=== PATIENT | female | born 1975 | race Caucasian/White ===

== ENCOUNTER 2023-07-11 10:10 | Emergency (ER) | payer OTHER, SELFPAY ==
[2023-07-11 10:27] VITALS: BP 142/95; PULSE 89; TEMP 36.7; O2SAT 94; BMI 42.6
--- NOTE | 2023-07-11 11:47 | ED.BACK1 ---
HPI HPI - Back Pain/Injury General Chief Complaint: Back Pain/Injury Stated Complaint: BACK PAIN Time Seen by Provider: 07/11/23 11:36 Source: patient Mode of arrival: walk-in History of Present Illness HPI Narrative: This patient is here complaining of pain in her left mid and lower thoracic area. Her medication profile indicates that she has been taking gabapentin from a primary care doctor for this issue for several months. She has not had new trauma or injury or change in activities. She does not have any radiculopathy. She has not had past surgical history to the back area. She has not been referred to a back specialist or neurosurgeon. She does not have any history of fever shakes or chills. She does not have bladder or bowel incontinence or dysfunction. She did not mention anything of urinary symptomatology but we will get a urinalysis on her. Related Data Home Medications ?Medication ?Instructions ?Recorded ?Confirmed aripiprazole 5 mg tablet 5 mg PO DAILY 07/11/23 07/11/23 gabapentin 300 mg capsule 300 mg PO BID 07/11/23 07/11/23 metformin 500 mg tablet,extended 500 mg PO BID 07/11/23 07/11/23 release 24 hr sertraline 50 mg tablet 50 mg PO DAILY 07/11/23 07/11/23 Allergies Allergy/AdvReac Type Severity Reaction Status Date / Time morphine Allergy Severe Verified 07/11/23 10:31 Penicillins Allergy Severe Verified 07/11/23 10:31 sulfamethoxazole Allergy Severe Verified 07/11/23 10:31 [From Bactrim] trimethoprim [From Bactrim] Allergy Severe Verified 07/11/23 10:31 Opioid HPI Opioid Management Most Recent Opioid Data: No Data to Display Exam Narrative Exam Narrative: She moves about with some discomfort. She is not pacing the is not present as nephrolithiasis. Otherwise her skin is warm and dry and mucous memories are moist and pink. Her vital signs are stable. Examining the back there is no gross kyphoscoliosis. There is some paravertebral muscle tenderness over the mid and lower thoracic area. She does not have pain in the lumbar area. There is no evidence of shingles. Her breath sounds are normal and her pulse oximetry is normal. Straight leg raising test is normal bilaterally. Heel and toe walking is normal. Deep tendon reflexes are symmetrical bilaterally with no deficit. Extensor houses longus function is normal bilaterally. Constitutional Vital Signs, click to edit/add: Last Vital Signs Temp 98.0 F 07/11/23 10:27 Pulse 89 07/11/23 10:27 Resp 16 07/11/23 10:27 BP 142/95 H 07/11/23 10:27 Pulse Ox 94 L 07/11/23 10:27 O2 Del Method Room Air 07/11/23 10:27 Course Vital Signs Vital signs: Vital Signs Temperature 98.0 F 07/11/23 10:27 Pulse Rate 89 07/11/23 10:27 Respiratory Rate 16 07/11/23 10:27 Blood Pressure 142/95 H 07/11/23 10:27 Pulse Oximetry 94 L 07/11/23 10:27 Oxygen Delivery Method Room Air 07/11/23 10:27 Temperature 98.0 F 07/11/23 10:27 Pulse Rate 89 07/11/23 10:27 Respiratory Rate 16 07/11/23 10:27 Blood Pressure 142/95 H 07/11/23 10:27 Pulse Oximetry 94 L 07/11/23 10:27 Oxygen Delivery Method Room Air 07/11/23 10:27 MDM - Back Pain/Injury MDM Narrative Medical decision making narrative: This patient's not had any CT imaging for many many many years. The CT of her thoracic spine did not show any gross abnormality. Her neurological findings are normal. This appears to be more musculoskeletal and not necessarily related to kidney problems. She will be placed on muscle relaxant and nighttime analgesic. She can continue the gabapentin or have her primary care doctor increase as necessary Discharge Plan Discharge Stand Alone Forms: Portal Instructions Chief Complaint: Back Pain/Injury Clinical Impression: Acute thoracic myofascial strain Patient Disposition: Home, Self-Care Time of Disposition Decision: 12:50 Prescriptions / Home Meds: No Action gabapentin 300 mg capsule 300 mg PO BID metformin 500 mg tablet extended release 24 hr 500 mg PO BID sertraline 50 mg tablet 50 mg PO DAILY aripiprazole 5 mg tablet 5 mg PO DAILY Print Language: Syrian Additional Instructions: Continue gabapentin. [place] for night pain/Robaxin for several days/warm compresses Referrals: MARCO GRANGER [Primary Care Provider] - 1 week
--- NOTE | 2023-07-11 11:47 | CT_ITS ---
The [address] [address] Patient Name: MASOUD LUDWIG MRN: [id number] date: 1975 Sex: F Assigned Patient Location: ER Current Patient Location: ER Accession/Order Number: [id number] Exam Date: 07/11/2023 11:59 Report Date: 07/11/2023 12:35 At the request of: EWELINA BRUCE Procedure: CT thoracic spine wo con PROCEDURE: CT thoracic spine wo con HISTORY: Back pain COMPARISON: XR thoracic spine 01/07/2015 TECHNIQUE: Axial, Coronal, and Sagittal CT images obtained without IV contrast. Dose reduction techniques were achieved by using automated exposure control and/or adjustment of mA and/or kV according to patient size and/or use of iterative reconstruction technique. FINDINGS: PARASPINAL AREA: Normal with no visible mass. DISCS: No significant disc space narrowing or appreciable significant disc bulging. BONES: Normal height and alignment of vertebral bodies; no fracture, spondylolisthesis, bone lesion. No significant degenerative facet arthropathy. OTHER: Negative. CT/CT thoracic spine wo con IMPRESSION: 1. No appreciable acute abnormality. 2. Minimal appreciable degenerative changes. Consider follow-up MRI of thoracic spine if symptoms persist. Electronically authenticated by: ELDER WEBER Date: 07/11/2023 12:35
== END 2023-07-11 13:24 | disposition home or self-care (01) ==
PROVIDERS: Emergency Provider Emergency Medicine Emergency Medical Services
DX: S29.012A Strain of muscle and tendon of back wall of thorax, initial encounter (principal); Z79.899 Other long term (current) drug therapy; Z79.84 Long term (current) use of oral hypoglycemic drugs
CPT/HCPCS: 72128; 99284

== ENCOUNTER 2023-11-03 12:54 | Emergency (ER) | payer OTHER, SELFPAY ==
[2023-11-03] VITALS (15 sets, daily range): BP systolic 137–171; BP diastolic 81–106; PULSE 78–93; TEMP 36.7; O2SAT 92–98; BMI 42.6
--- NOTE | 2023-11-03 13:17 | XR_ITS ---
The [address] [address] Patient Name: MASOUD LUDWIG MRN: [id number] date: 1975 Sex: F Assigned Patient Location: ED.MAIN Current Patient Location: ER Accession/Order Number: [id number] Exam Date: 11/03/2023 14:20 Report Date: 11/03/2023 15:30 At the request of: RALPH GARCES Procedure: XR chest 1V PROCEDURE: XR chest 1V, 11/03/2023 2:20 PM EDT CLINICAL INDICATIONS: Chest pain, short of breath COMPARISON: None TECHNIQUE: Upright AP portable chest 1419 hours FINDINGS: The heart is upper normal in size. Mediastinum accentuated by rotation and kyphosis. Lung volumes are diminished with mild perihilar pulmonary venous congestion or subsegmental atelectasis. Acute consolidation, pleural effusion, or pneumothorax is not demonstrated. No acute osseous abnormality is seen. Regional soft tissues are unremarkable. XR/XR chest 1V IMPRESSION: 1. Low lung volumes with perihilar atelectasis or mild pulmonary venous congestion 2. No consolidation, pleural effusion or pneumothorax Electronically authenticated by: IVIS BURTON Date: 11/03/2023 15:30
--- NOTE | 2023-11-03 13:17 | ECG_ITS ---
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
--- NOTE | 2023-11-03 13:19 | ED.CHESTPAI1 ---
HPI - Chest Pain General Chief Complaint: Chest Pain Stated Complaint: CHEST PAIN Time Seen by Provider: 11/03/23 12:55 Source: patient Mode of arrival: walk-in History of Present Illness HPI narrative: Patient presents to ED complaining of chest pain. She says she has had chest pain for the past 3 days across the center of her chest. It would come and go nothing really made it worse or better. She said today the chest pain was across her whole chest and felt worse than yesterday so she came in for evaluation. She does have a history of diabetes. No history of high blood pressure although upon arrival her blood pressure is elevated. She does have a family history of heart problems as well. No personal history of cardiac issues or stents.She denies shortness of breath with exertion but states when the pain comes and makes her feel little short of breath. No calf pain or swelling. No wheezing Related Data Home Medications ?Medication ?Instructions ?Recorded ?Confirmed aripiprazole 5 mg tablet 5 mg PO DAILY 07/11/23 07/11/23 gabapentin 300 mg capsule 300 mg PO BID 07/11/23 07/11/23 metformin 500 mg tablet,extended 500 mg PO BID 07/11/23 07/11/23 release 24 hr sertraline 50 mg tablet 50 mg PO DAILY 07/11/23 07/11/23 Previous Rx's ?Medication ?Instructions ?Recorded prednisone 20 mg tablet 20 mg PO BID 3 days #6 tabs 11/03/23 Allergies Allergy/AdvReac Type Severity Reaction Status Date / Time morphine Allergy Severe Verified 07/11/23 10:31 Penicillins Allergy Severe Verified 07/11/23 10:31 sulfamethoxazole Allergy Severe Verified 07/11/23 10:31 [From Bactrim] trimethoprim [From Bactrim] Allergy Severe Verified 07/11/23 10:31 Review of Systems ROS Status of ROS 10 or more systems reviewed and unremarkable except as noted in history and below Exam Narrative Exam Narrative: Time Seen: [] Vital Signs: [Per nurse's notes.] General: [Alert] Skin: [Warm, dry, no rash.] Head: [Normocephalic, atraumatic.] Neck: [Supple, trachea midline.] Eye: [Pupils are equal, round and reactive to light, extraocular movements are intact, normal conjunctiva.] Ears, nose, mouth and throat: oral mucosa moist. Cardiovascular: [Regular rate and rhythm, no murmur.] Respiratory: [Lungs are clear to auscultation, respirations are non-labored, breath sounds are equal.] Chest wall: [No tenderness, no deformity.] Gastrointestinal: [Soft, nontender, non distended, normal bowel sounds.] MSK: 5 out of 5 muscle strength x 4 extremities no calf pain or edema Lymphatics: [No lymphadenopathy.] Psychiatric: [Cooperative, appropriate mood & affect.] Neurological: [Alert and oriented to person, place, time, and situation, no focal neurological deficit observed.] Constitutional Vital Signs, click to edit/add: Last Vital Signs Temp 98.0 F 11/03/23 12:58 Pulse 78 11/03/23 14:20 Resp 16 11/03/23 14:20 BP 139/81 11/03/23 14:15 Pulse Ox 96 11/03/23 14:20 O2 Del Method Room Air 11/03/23 13:13 Course Vital Signs Vital signs: Vital Signs Temperature 98.0 F 11/03/23 12:58 Pulse Rate 92 H 11/03/23 12:58 Respiratory Rate 20 11/03/23 12:58 Blood Pressure 154/99 H 11/03/23 12:58 Temperature 98.0 F 11/03/23 12:58 Pulse Rate 78 11/03/23 14:20 Respiratory Rate 16 11/03/23 14:20 Blood Pressure 139/81 11/03/23 14:15 Pulse Oximetry 96 11/03/23 14:20 Oxygen Delivery Method Room Air 11/03/23 13:13 MDM - Chest Pain MDM Narrative Medical decision making narrative: Patient's cardiac workup is negative for acute. Chest x-ray shows mild inflammation but no acute pneumonia. Patient has been diagnosed with pleurisy in the past and said this does feel similar. No acute cardiac abnormality, normal EKG. No pneumonia on the x-ray and otherwise labs are stable. Vital signs stable. Will send home with some steroids. Follow-up with family doctor otherwise return to ED if worsening symptoms. She request today and tomorrow off work and note was given. Differential Diagnosis Differential diagnosis: Likely stable angina, unstable angina pectoris, atypical chest pain and chest pain Medical Records Data Attestation: I reviewed the patient's medical records. Lab Data Attestation: I reviewed the patient's lab results. Labs: Lab Results 11/03/23 Range/Units 13:10 WBC 11.8 H (4.0-11.0) 10^3/uL RBC 4.66 (4.20-5.40) 10^6/uL Hgb 14.2 (12.0-16.0) g/dL Hct 43.8 (36.0-48.0) % MCV 94.0 (81.0-99.0) fL MCH 30.5 (26.7-34.0) pg MCHC 32.4 (29.9-35.2) g/dL RDW 14.1 (11.0-15.0) % Plt Count 331 (150-450) 10^3/uL MPV 9.0 L (9.5-13.5) fL Neut % (Auto) 62.9 (43.0-75.0) % Lymph % (Auto) 27.6 (20.5-60.0) % [place] % (Auto) 6.4 (1.7-12.0) % Eos % (Auto) 2.0 (0.9-7.0) % Baso % (Auto) 0.8 (0.2-2.0) % Neut # (Auto) 7.4 H (1.4-6.5) 10^3/uL Lymph # (Auto) 3.3 (1.2-3.8) 10^3/uL [place] # (Auto) 0.8 (0.3-0.8) 10^3/uL Eos # (Auto) 0.2 (0.0-0.7) 10^3/uL Baso # (Auto) 0.1 (0.0-0.1) 10^3/uL Abs Immat Gran (auto) 0.04 H (0.00-0.03) 10^3/uL Imm/Tot Granulo (auto) 0.3 (0.0-0.5) % Sodium 134 L (136-145) mmol/L Potassium 4.0 (3.5-5.1) mmol/L Chloride 100 (98-107) mmol/L Carbon Dioxide 28.8 (21.0-32.0) mmol/L Anion Gap 9.2 BUN 11.0 (7.0-18.0) mg/dL Creatinine 0.72 (0.55-1.02) mg/dL Est GFR ( Amer) >60 (>=60) Est GFR (Non-Af Amer) >60 (>=60) BUN/Creatinine Ratio 15.3 Glucose 128 H (74-106) mg/dL Calcium 9.1 (8.5-10.1) mg/dL Total Bilirubin 0.2 (0.2-1.0) mg/dL AST 8 L (15-37) U/L ALT 15 (14-59) U/L Alkaline Phosphatase 139 H (46-116) U/L Troponin I High Sens <4.0 L (4.0-51.3) pg/mL Total Protein 7.3 (6.4-8.2) g/dL Albumin 3.4 (3.4-5.0) g/dL Globulin 3.9 g/dL Albumin/Globulin Ratio 0.9 Imaging Data Chest x-ray: Radiologist's impression: ITS Impressions Chest X-Ray 11/03/23 13:17 IMPRESSION: 1. Low lung volumes with perihilar atelectasis or mild pulmonary venous congestion 2. No consolidation, pleural effusion or pneumothorax Electronically authenticated by: IVIS BURTON Date: 11/03/2023 15:30 ECG Data Attestation: I personally reviewed and interpreted this ECG as follows: Interpretation: EKG INTERPRETATION Time: []1302 Rate: []97 Rhythm: _ []Sinus rhythm ST segments: _ []No acute ST elevation or depression T waves: _ [] Ectopy: _ [] P wave/AL interval: _ [] QRS interval: _ [] QT interval: _ [] Comparison: _ [] Comparison EKG date: [] Performed by: [self] Heart Score History: Slightly/Non-Suspicious ECG: Normal Age: >45-<65 years Risk Factors: 1 or 2 Risk Factors Troponin: <Normal Limit Total Heart Score Recommendations & Risks:: 2 Discharge Plan Discharge Stand Alone Forms: Portal Instructions Chief Complaint: Chest Pain Clinical Impression: Chest pain, Pleurisy Patient Disposition: Home, Self-Care Time of Disposition Decision: 15:36 Condition: Good Mode of Transportation: Private Vehicle Prescriptions / Home Meds: New prednisone 20 mg tablet 20 mg PO BID 3 Days Qty: 6 0RF No Action gabapentin 300 mg capsule 300 mg PO BID metformin 500 mg tablet extended release 24 hr 500 mg PO BID sertraline 50 mg tablet 50 mg PO DAILY aripiprazole 5 mg tablet 5 mg PO DAILY Print Language: Tongan Instructions: [place] (ED) Referrals: MARCO GRANGER [Primary Care Provider] - 1 week Discharge Date/Time: 11/03/23 15:52
[2023-11-03] MEDS: 0.9 % SODIUM CHLORIDE 500 ML IV (13:27)
[2023-11-03] MEDS: KETOROLAC TROMETHAMINE 30 MG/ML VIAL 15 MG IVP (13:27)
[2023-11-03 13:43] LABS: Basophils Absolute Auto 0.1 10^3/uL (0.0-0.1); Basophils Percent Auto 0.8 % (0.2-2.0); Eosinophils Absolute Auto 0.2 10^3/uL (0.0-0.7); Hematocrit 43.8 % (36.0-48.0); Hemoglobin 14.2 g/dL (12.0-16.0); Immature Granulocytes Abs Auto 0.04 10^3/uL (0.00-0.03); Immature Granulocytes Pct Auto 0.3 % (0.0-0.5); Lymphocytes Absolute Auto 3.3 10^3/uL (1.2-3.8); Lymphocytes Percent Auto 27.6 % (20.5-60.0); Mean Corpuscular HGB Conc 32.4 g/dL (29.9-35.2); Mean Corpuscular Hemoglobin 30.5 pg (26.7-34.0); Monocytes Absolute Auto 0.8 10^3/uL (0.3-0.8); Monocytes Percent Auto 6.4 % (1.7-12.0); Neutrophils Absolute Auto 7.4 10^3/uL (1.4-6.5); Neutrophils Percent Auto 62.9 % (43.0-75.0); Platelet Count 331 10^3/uL (150-450); Red Blood Count 4.66 10^6/uL (4.20-5.40); Red Cell Distribution Width 14.1 % (11.0-15.0); White Blood Count 11.8 10^3/uL (4.0-11.0)
[2023-11-03 14:01] LABS: Alanine Aminotransferase 15 U/L (14-59); Albumin Globulin Ratio 0.9; Albumin Level 3.4 g/dL (3.4-5.0); Alkaline Phosphatase 139 U/L (46-116); Anion Gap 9.2; Aspartate Amino Transferase 8 U/L (15-37); BUN Creatinine Ratio 15.3; Bilirubin Total 0.2 mg/dL (0.2-1.0); Calcium 9.1 mg/dL (8.5-10.1); Carbon Dioxide 28.8 mmol/L (21.0-32.0); Chloride 100 mmol/L (98-107); Estimated GFR (African America >60 (>=60); Estimated GFR (Non-African Ame >60 (>=60); Globulin 3.9 g/dL; Glucose 128 mg/dL (74-106); Sodium 134 mmol/L (136-145); Total Protein 7.3 g/dL (6.4-8.2)
[2023-11-03 14:03] LABS: Troponin I High Sensitivity <4.0 pg/mL (4.0-51.3)
== END 2023-11-03 15:52 | disposition home or self-care (01) ==
PROVIDERS: Emergency Provider Emergency Medicine
DX: R07.9 Chest pain, unspecified (principal); R09.1 Pleurisy
CPT/HCPCS: 36415; 71045; 80053; 84484; 85025; 93005; 96374; 99285; J1885

== ENCOUNTER 2024-02-02 08:36 | Emergency (ER) | payer OTHER, SELFPAY ==
[2024-02-02] VITALS (30 sets, daily range): BP systolic 146–183; BP diastolic 82–103; PULSE 74–110; TEMP 36.6; O2SAT 94–99; BMI 42.5
--- OUTSIDE RECORDS SUMMARY | 2024-02-02 08:42 | XMS_ITS | CCD ---
Author Organization [facility] Care Team Providers Care Pre Owned Sales Consultant Name Role Phone MARCO GRANGER Admitting Unavailable MARCO GRANGER Attending Unavailable MARCO GRANGER Primary Care Unavailable ELKIN, MARCO Consulting Unavailable Allergies Allergy Classification Reported Allergen(s) Allergy Type Date of Onset Reaction(s) Facility (1 source) Morphine Drug Allergy 04-01-2012 [facility] (1 source) Penicillins Drug allergy (disorder) 04-01-2012 [facility] (1 source) Sulfonamides (Antibiotic) Drug allergy (disorder) 04-01-2012 [facility] Problems Problem Classification Problem Date Documented Da te Episodic/Chronic Immunizations and screening for infectious disease (4 sources) Encounter for screening for other viral diseases; Translations: [ENC SCREENING FOR OTH VIRAL DZ] Onset: 10-29-2019 Episodic Other lower respiratory disease (1 source) Cough; Translations: [COUGH] Onset: 11-01-2019 Episodic Results Test Name Value Interpretation Reference Range Facil ity COVID-19 PCRon 10-31-2019 SARS-CoV-2, PHOEBE Not Detected Normal Not Detected [facility] Comment on above: Result Comment: This test was developed and its performance characteristics determined by [employer]. This test has not been FDA cleared or approved. This test has been authorized by FDA under an Emergency Use Authorization (EUA). This test is only authorized for the duration of time the declaration that circumstances exist justifying the authorization of the emergency use of in vitro diagnostic tests for detection of SARS-CoV-2 virus and/or diagnosis of COVID-19 infection under section 564(b)(1) of the Act, 21 U.S.C. 360bbb-3(b)(1), unless the authorization is terminated or revoked sooner. When diagnostic testing is negative, the possibility of a false negative result should be considered in the context of a patient's recent exposures and the presence of clinical signs and symptoms consistent with COVID-19. An individual without symptoms of COVID-19 and who is not shedding SARS-CoV-2 virus would expect to have a negative (not detected) result in this assay. Performed By: #### C VDPCR #### [facility] [address] [place], [place] [address] Dottie Shields Encounters Encounter Date Encounter Type Care Provider Facility Start: 10-29-2019 End: 10-30-2019 Patient encounter procedure MARCO GRANGER Facility:[facility] Payers Date Payer Category Payer Unknown [id number] 1961 Unknown [id number] Summary Purpose Family History No Family History Records Found Advance Directives No Advanced Directives Records Found Additional Source Comments INFORMATION SOURCE (unrecogn ized section and content) DATE CREATED AUTHOR 01/01/2020 [facility] FOR RECORDS PERTAINING TO PATIENTS WHO ARE OR HAVE BEEN ENROLLED IN A CHEMICAL DEPENDENCY/SUBSTANCEABUSE PROGRAM, SOME INFORMATION MAY BE OMITTED. This clinical summary was aggregated from multiple sources. Caution should be exercised in using it in the provision of clinical care. This summary normalizes information from multiple sources, and as a consequence, information in this document may materially change the coding, format and clinical context of patient data. In addition, data may be omitted in some cases. CLINICAL DECISIONS SHOULD BE BASED ON THE PRIMARY CLINICAL RECORDS. [employer] provides no warranty or guarantee of the accuracy or completeness of information in this document.
--- NOTE | 2024-02-02 08:57 | ECG_ITS ---
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
--- NOTE | 2024-02-02 08:58 | CT_ITS ---
[address] [address] Patient Name: MASOUD LUDWIG MRN: [id number] date: 1975 Sex: F Assigned Patient Location: ER Current Patient Location: Accession/Order Number: [id number] Exam Date: 02/02/2024 09:15 Report Date: 02/02/2024 09:44 At the request of: MARTIN COOK Procedure: CT head/brain wo con EXAMINATION: CT head/brain wo con HISTORY: dizziness COMPARISON: None. TECHNIQUE: CT head without contrast. Dose reduction techniques were achieved by using: automated exposure control and/or adjustment of mA and /or kV according to patient size and/or use of iterative reconstruction technique. FINDINGS: There is a T1 low density lesion at the left thalamus measuring 8 x 12 mm. Negative for acute hemorrhage. No hydrocephalus, midline shift, mass effect, pathologic extra-axial fluid collections. CT/CT head/brain wo con IMPRESSION: 1. 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 There is no evidence for hemorrhage or mass effect. 2. Negative for acute hemorrhage or acute process in the remaining brain. Electronically authenticated by: NISHA MONSON Date: 02/02/2024 09:44
--- NOTE | 2024-02-02 09:27 | ED_ITS ---
HPI - Dizziness General Chief Complaint: Dizziness Stated Complaint: DIZZINESS Time Seen by Provider: 02/02/24 08:57 Source: patient Mode of arrival: Wheelchair History of Present Illness HPI Narrative: The patient is coming to us with 3 days history of increased dizziness, mentioned that almost a month ago she has been having some episodes where the room spinning but 3 days ago she noted that this room spinning was associated also with the right-sided weakness, he mentioned that this started night and today she is presenting to us at Saturday The patient has no headache at the moment she denies any chest pain nausea vomiting or any other concerns. She mentioned that she has not been taking her insulin because she does not have any medication for the last month because of insurance issue The patient mentioned that she has been managing at home while leaning on objects to move around but she is having right-sided weakness that she also noted at evening No blurry vision or double vision no difficulty speaking at any time Related Data Allergies Allergy/AdvReac Type Severity Reaction Status Date / Time morphine Allergy Severe Verified 07/11/23 10:31 Penicillins Allergy Severe Verified 07/11/23 10:31 sulfamethoxazole (From Allergy Severe Verified 07/11/23 10:31 Bactrim) trimethoprim (From Bactrim) Allergy Severe Verified 07/11/23 10:31 Review of Systems ROS Status of ROS 10 or more systems reviewed and unremark able except as noted in history and below Exam Narrative Exam Narrative: Nurses notes and vital signs reviewed and patient is not hypoxic. Upon arrival the patient NIH score is 4 ; She have some drift in the right upper extremity when raised and the right lower extremity the patient have mild movement against gravity The patient also had mild ataxia in the right hand mostly when pointing to the index finger she would point just beside her nose that at her nose General: Well-appearing and in no apparent distress. Skin: Warm, dry, no pallor noted. No rash. Head: Normocephalic, atraumatic. Neck: Supple, non-tender. Eye: Pupils are equal, round and EOMI. No scleral icterus. Ears, Nose, Mouth, and Throat: TM are clear, no nasal mucosal hypertrophy. Oral mucosa is moist, no posterior oropharynx erythema, uvula is mid-line Cardiovascular: Regular Rate and Rhythm without murmur, gallop or rub. Respiratory: No accessory muscle use or respiratory distress. Lungs are clear to auscultation, no wheezing, rales or rhonchi Chest Wall: no tenderness Back: No midline thoracic or lumbar vertebral tenderness. No CVA tenderness Musculoskeletal: normal ROM, no calf or popliteal tenderness, no lower extremity edema/swelling GI: Abdomen is soft, non-distended. Normal bowel sounds. No masses appreciated. No tenderness to palpation. No rebound, guarding, or rigidity noted. . Psychiatric: Cooperative and interactive. Normal mood and affect. Constitutional Vital Signs, click to edit/add: Last Vital Signs Temp 98 F 02/02/24 08:40 Pulse 79 02/02/24 13:50 Resp 15 02/02/24 13:50 BP 155/91 H 02/02/24 13:30 Pulse Ox 94 L 02/02/24 11:20 Course Vital Signs Vital signs: Vital Signs Temperature 98 F 02/02/24 08:40 Pulse Rate 93 H 02/02/24 08:40 Respiratory Rate 20 02/02/24 08:40 Blood Pressure 180/97 H 02/02/24 08:40 Pulse Oximetry 99 02/02/24 08:40 Temperature 98 F 02/02/24 08:40 Pulse Rate 79 02/02/24 13:50 Respiratory Rate 15 02/02/24 13:50 Blood Pressure 155/91 H 02/02/24 13:30 Pulse Oximetry 94 L 02/02/24 11:20 MDM - Dizziness MDM Narrative Medical decision making narrative: Upon arrival the patient EKG showing that she had sinus rhythm with a heart rate of [address] elevation or depression CBC showed no acute pathology the chemistry showing hyperglycemia with a blood sugar of 286 The patient had a CAT scan initially without contrast showing subacute thalamic left-sided hypodensity possibly subacute stroke The patient case was discussed with and the patient was started on aspirin low-dose The patient then had her CT angio reviewed by and 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 neurology Lab Data Labs: Lab Results 11/03/24 Range/Units 09:06 WBC 11.3 H (4.0-11.0) 10^3/uL RBC 4.95 (4.20-5.40) 10^6/uL Hgb 15.0 (12.0-16.0) g/dL Hct 45.4 (36.0-48.0) % MCV 91.7 (81.0-99.0) fL MCH 30.3 (26.7-34.0) pg MCHC 33.0 (29.9-35.2) g/dL RDW 13.6 (11.0-15.0) % Plt Count 303 (150-450) 10^3/uL MPV 9.3 L (9.5-13.5) fL Neut % (Auto) 71.8 (43.0-75.0) % Lymph % (Auto) 20.2 L (20.5-60.0) % [place] % (Auto) 6.1 (1.7-12.0) % Eos % (Auto) 0.9 (0.9-7.0) % Baso % (Auto) 0.6 (0.2-2.0) % Neut # (Auto) 8.1 H (1.4-6.5) 10^3/uL Lymph # (Auto) 2.3 (1.2-3.8) 10^3/uL [place] # (Auto) 0.7 (0.3-0.8) 10^3/uL Eos # (Auto) 0.1 (0.0-0.7) 10^3/uL Baso # (Auto) 0.1 (0.0-0.1) 10^3/uL Abs Immat Gran (auto) 0.04 H (0.00-0.03) 10^3/uL Imm/Tot Granulo (auto) 0.4 (0.0-0.5) % Sodium 137 (136-145) mmol/L Potassium 4.2 (3.5-5.1) mmol/L Chloride 100 (98-107) mmol/L Carbon Dioxide 22.3 (21.0-32.0) mmol/L Anion Gap 18.9 BUN 10.0 (7.0-18.0) mg/dL Creatinine 0.83 (0.55-1.02) mg/dL Est GFR ( Amer) >60 (>=60 mL/min/1.73m^2) Est GFR (Non-Af Amer) >60 (>=60 mL/min/1.73m^2) BUN/Creatinine Ratio 12.0 Glucose 286 H (74-106) mg/dL Calcium 9.3 (8.5-10.1) mg/dL Magnesium 1.8 (1.8-2.4) mg/dL Total Bilirubin 0.4 (0.2-1.0) mg/dL AST 9 L (15-37) U/L ALT 18 (14-59) U/L Alkaline Phosphatase 163 H (46-116) U/L Troponin I High Sens <4.0 L (4.0-51.3) pg/mL Total Protein 7.6 (6.4-8.2) g/dL Albumin 3.4 (3.4-5.0) g/dL Globulin 4.2 g/dL Albumin/Globulin Ratio 0.8 Discharge Plan Discharge Chief Complaint: Dizziness Clinical Impression: Dissection of vertebral artery Stroke Qualifiers: CVA mechanism: thrombosis Precerebral and cerebral artery: vertebral artery Laterality of affected vessel: unspecified Qualified Code(s): I63.019 - Cerebral infarction due to thrombosis of unspecified vertebral artery Patient Disposition: [facility] Time of Disposition Decision: 12:21 Discharge Date/Time: 02/02/24 13:54
[2024-02-02 09:30] LABS: Basophils Absolute Auto 0.1 10^3/uL (0.0-0.1); Basophils Percent Auto 0.6 % (0.2-2.0); Eosinophils Absolute Auto 0.1 10^3/uL (0.0-0.7); Eosinophils Percent Auto 0.9 % (0.9-7.0); Hematocrit 45.4 % (36.0-48.0); Immature Granulocytes Abs Auto 0.04 10^3/uL (0.00-0.03); Immature Granulocytes Pct Auto 0.4 % (0.0-0.5); Lymphocytes Absolute Auto 2.3 10^3/uL (1.2-3.8); Lymphocytes Percent Auto 20.2 % (20.5-60.0); Mean Corpuscular Hemoglobin 30.3 pg (26.7-34.0); Mean Corpuscular Volume 91.7 fL (81.0-99.0); Mean Platelet Volume 9.3 fL (9.5-13.5); Monocytes Absolute Auto 0.7 10^3/uL (0.3-0.8); Monocytes Percent Auto 6.1 % (1.7-12.0); Neutrophils Absolute Auto 8.1 10^3/uL (1.4-6.5); Neutrophils Percent Auto 71.8 % (43.0-75.0); Platelet Count 303 10^3/uL (150-450); Red Blood Count 4.95 10^6/uL (4.20-5.40); Red Cell Distribution Width 13.6 % (11.0-15.0); White Blood Count 11.3 10^3/uL (4.0-11.0)
[2024-02-02] MEDS: ONDANSETRON PF 4 MG/2 ML VIAL IV (09:34)
[2024-02-02 09:46] LABS: Alanine Aminotransferase 18 U/L (14-59); Albumin Globulin Ratio 0.8; Albumin Level 3.4 g/dL (3.4-5.0); Alkaline Phosphatase 163 U/L (46-116); Anion Gap 18.9; Aspartate Amino Transferase 9 U/L (15-37); Bilirubin Total 0.4 mg/dL (0.2-1.0); Calcium 9.3 mg/dL (8.5-10.1); Carbon Dioxide 22.3 mmol/L (21.0-32.0); Chloride 100 mmol/L (98-107); Estimated GFR (African America >60 (>=60 mL/min/1.73m^2); Estimated GFR (Non-African Ame >60 (>=60 mL/min/1.73m^2); Globulin 4.2 g/dL; Glucose 286 mg/dL (74-106); Potassium 4.2 mmol/L (3.5-5.1); Sodium 137 mmol/L (136-145); Total Protein 7.6 g/dL (6.4-8.2)
[2024-02-02 09:48] LABS: Magnesium 1.8 mg/dL (1.8-2.4); Troponin I High Sensitivity <4.0 pg/mL (4.0-51.3)
--- NOTE | 2024-02-02 09:59 | CT_ITS ---
[address] [address] Patient Name: MASOUD LUDWIG MRN: [id number] date: 1975 Sex: F Assigned Patient Location: ER Current Patient Location: .[facility] Accession/Order Number: [id number] Exam Date: 02/02/2024 10:45 Report Date: 02/02/2024 12:28 At the request of: MARTIN COOK Procedure: CT angio head EXAMINATION: CT angio neck, CT angio head HISTORY: subacute stroke [chronic infarct on head CT. COMPARISON: Head CT same date. TECHNIQUE: CT angiogram of the head and neck with intravenous contrast, maximum intensity projection images, 3-dimensional volume rendered images on separate workstation. Dose reduction techniques were achieved by using: automated exposure control and/or adjustment of mA and /or kV according to patient size and/or use of iterative reconstruction technique. FINDINGS: CTA neck: No flow-limiting stenosis at the origins of the great vessels. There is an aberrant right subclavian artery. No stenosis of the carotid arteries by NASCET criteria. The right vertebral artery is patent without flow limiting stenosis in the cervical segment. The left vertebral artery is occluded at the origin, with reconstitution from collateral flow at the mid V2 segment. The vessel then again occludes at the distal V2 segment. The distal right vertebral artery appears to nearly terminate into the posterior inferior cerebellar artery. There is flow in the distal left vertebral artery. CTA HEAD: Flow in the anterior circulation without occlusion. Flow in the basilar artery and the bilateral posterior cerebral arteries. No intracranial aneurysms or vascular malformations. No airspace infiltrates in the included lung apices. CT/CT angio head IMPRESSION: 1. The left vertebral artery is occluded at the origin, with intermittent reconstitution at the V2 segment, which then completely occludes below the skull base. This could be from dissection. There is severe decreased caliber of the nondominant distal right vertebral artery after the takeoff of the posterior inferior cerebellar artery, which could be from stenosis or anatomic variation. There is flow in the basilar artery, which could be from retrograde flow or from small amount of flow from the right vertebral artery. 2. No flow limiting stenosis or occlusion of the remaining major intracranial arteries. 3. No stenosis of the carotid arteries by NASCET criteria. Critical results were NOTIFIED by TELEPHONE BY Dr. Orlando Hwang to Dr. Cook At 02/02/2024 12:10 PM EST. Electronically authenticated by: ORLANDO HWANG Date: 02/02/2024 12:28
--- NOTE | 2024-02-02 09:59 | CT_ITS ---
[address] [address] Patient Name: MASOUD LUDWIG MRN: [id number] date: 1975 Sex: F Assigned Patient Location: ER Current Patient Location: .[facility] Accession/Order Number: [id number] Exam Date: 02/02/2024 10:45 Report Date: 02/02/2024 12:28 At the request of: MARTIN COOK Procedure: CT angio neck EXAMINATION: CT angio neck, CT angio head HISTORY: subacute stroke [chronic infarct on head CT. COMPARISON: Head CT same date. TECHNIQUE: CT angiogram of the head and neck with intravenous contrast, maximum intensity projection images, 3-dimensional volume rendered images on separate workstation. Dose reduction techniques were achieved by using: automated exposure control and/or adjustment of mA and /or kV according to patient size and/or use of iterative reconstruction technique. FINDINGS: CTA neck: No flow-limiting stenosis at the origins of the great vessels. There is an aberrant right subclavian artery. No stenosis of the carotid arteries by NASCET criteria. The right vertebral artery is patent without flow limiting stenosis in the cervical segment. The left vertebral artery is occluded at the origin, with reconstitution from collateral flow at the mid V2 segment. The vessel then again occludes at the distal V2 segment. The distal right vertebral artery appears to nearly terminate into the posterior inferior cerebellar artery. There is flow in the distal left vertebral artery. CTA HEAD: Flow in the anterior circulation without occlusion. Flow in the basilar artery and the bilateral posterior cerebral arteries. No intracranial aneurysms or vascular malformations. No airspace infiltrates in the included lung apices. CT/CT angio neck IMPRESSION: 1. The left vertebral artery is occluded at the origin, with intermittent reconstitution at the V2 segment, which then completely occludes below the skull base. This could be from dissection. There is severe decreased caliber of the nondominant distal right vertebral artery after the takeoff of the posterior inferior cerebellar artery, which could be from stenosis or anatomic variation. There is flow in the basilar artery, which could be from retrograde flow or from small amount of flow from the right vertebral artery. 2. No flow limiting stenosis or occlusion of the remaining major intracranial arteries. 3. No stenosis of the carotid arteries by NASCET criteria. Critical results were NOTIFIED by TELEPHONE BY Dr. Orlando Hwang to Dr. Cook At 02/02/2024 12:10 PM EST. Electronically authenticated by: ORLANDO HWANG Date: 02/02/2024 12:28
--- NOTE | 2024-02-02 11:00 | PC.NURSE ---
pt reports having dizziness for past month. pt states dizziness became worse 3 days ago with some weakness to right side. pt denies any injury or fall. pt states she has been to see her pcp and states her pcp did not do anything at that time for her dizziness.
[2024-02-02] MEDS: ASPIRIN 81 MG TAB.CHEW PO (11:12)
[2024-02-02] MEDS: LABETALOL HCL 20 MG/4 ML SYRINGE 10 MG IVP (11:51)
[2024-02-02] MEDS: HEPARIN SODIUM,PORCINE/D5W 25,000 UNIT/500 ML IV.SOLN 18 UNIT IV (11:52)
== END 2024-02-02 13:54 | disposition short-term general hospital (02) ==
PROVIDERS: Emergency Provider Emergency Medicine
DX: I63.012 Cerebral infarction due to thrombosis of left vertebral artery (principal); R29.704 NIHSS score 4; I77.74 Dissection of vertebral artery; R73.9 Hyperglycemia, unspecified; T38.3X6A Underdosing of insulin and oral hypoglycemic [antidiabetic] drugs, initial encounter; Z91.120 Patient's intentional underdosing of medication regimen due to financial hardship
CPT/HCPCS: 36415; 70450; 70496; 70498; 80053; 83735; 84484; 85025; 93005; 96374; 96375; 99285; J1644; J1920; J2405; Q9967

== ENCOUNTER 2024-02-14 16:53 | Outpatient (REF) | payer OTHER, SELFPAY ==
--- OUTSIDE RECORDS SUMMARY | 2024-02-14 17:01 | XMS_ITS | CCD ---
Author Organization [facility] Care Team Providers Care Mortgage Loan Reviewer Name Role Phone MARCO GRANGER Admitting Unavailable ANGLIM, MARCO Attending Unavailable ANGLIM, MARCO Primary Care Unavailable ANGLIM, MARCO Consulting Unavailable SHIV GARCIAS Admitting Unavailable GARCIASSHIV GONSALVES Attending Unavailable DIABMARTIN Referring Unavailable SERVICES, [facility] Care Unava ilable MOON HAWKINS Consulting Unavailable ARMANIHERVE Consulting Unavailable DIAB MARTIN AHMAD Referring Unavailable SERVICES, [facility] Unava ilable SERVICES, [facility] Care Unava ilable SERVICES, [facility] Unava ilable SERVICES, [facility] Care Unava ilable Services, [facility] Primary Care Provider Allergies Allergy Classification Reported Allergen(s) Allergy Type Date of Onset Reaction(s) Facility (3 sources) Morphine; Translations: [MORPHINE] Drug Allergy 04-01-19 13 [facility] Repository (3 sources) Penicillins; Translations: [PENICILLINS] Drug allergy (disorder) 04-01-19 13 [facility] Repository (1 source) Sulfonamides (Antibiotic) Drug allergy (disorder) 04-01-19 13 [facility] Repository (4 sources) raspberry extract; Translations: [RASPBERRY] Drug Allergy 02-04-20 24 Hives [facility] Repository (4 sources) Sulfamethoxazole / Trimethoprim; Translations: [SULFAMETHOXAZOLE-TR IMETHOPRIM] Drug Allergy 09-30-19 19 Anaphylaxis [facility] (2 sources) Morphine Drug Allergy 09-30-19 19 [facility] (2 sources) Penicillins Propensity to adverse reactions to drug 09-30-19 19 [facility] Medications Current Medications Medication Drug Class(es) Dates Sig (Normalized) Sig (Original) atorvastatin 40 mg oral tablet (2 sources) HMG-CoA Reductase Inhibitor Start: 02-08-2024 End: 08-06-2024 take 1 tablet by mouth once daily atorvastatin (LIPITOR) 40 mg tablet Take 1 tablet (40 mg total) by mouth nightly for 180 days. 90 tablet 1 02/08/2024 08/06/2024 Active 3 ml insulin glargine 100 unt/ml pen injector (2 sources) Insulin Analog Start: 02-08-2024 inject 25 [IU] by subcutaneous injection in the morning insulin glargine (LANTUS, SEMGLEE) 100 unit/mL (3 mL) insulin pen Inject 25 Units under the skin in the morning and 25 Units before bedtime. 15 mL 12 02/08/2024 Active 3 ml insulin lispro 100 unt/ml pen injector (6 sources) Insulin Analog Start: 02-08-2024 insulin lispro (HumaLOG) 100 unit/mL insulin pen Inject 2-10 Units under the skin in the morning and 2-10 Units at noon and 2-10 Units in the evening. Inject with meals. Daytime hyperglycemia dosing with meals. 151-200 mg/dL= 2 units, 201-250 mg/dL= 4 units, 251-300 mg/dL=6, units, 301-350 mg/dL=8 units, 351-400 mg/dL=10 units.. 15 mL 12 02/08/2024 Active Start: 02-08-2024 inject 2-8 [IU] by s ubcutaneous injection once daily at bedtime insulin lispro (HumaLOG) 100 unit/mL insulin pen Inject 2-8 Units under the skin nightly. Bedtime hyperglycemia dosing. 201-250 mg/dL=2 units, 251-300 mg/dL=4 units, 301-350 mg/dL=6 units. 351-400 mg/dL=8 units. 15 mL 12 02/08/2024 Active 24 hr nicotine 0.583 mg/hr transdermal system (2 sources) Cholinergic Nicotinic Agonist Start: 02-08-2024 End: 02-15-2024 apply 1 dose transdermal route every hour in the morning nicotine (NICODERM CQ) 14 mg/[address] 1 patch on the skin in the morning for 7 days. 7 patch 02/08/2024 02/15/2024 Active warfarin sodium 2.5 mg oral tablet (2 sources) Vitamin K Antagonist Start: 02-08-2024 warfarin (COUMADIN) 2.5 mg tablet Take 5 mg daily for an INR goal of 2-3. This medication will be managed by the [facility] anticoagulation clinic/or [facility] to maintain INR goal of 2-3. 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 02-10-2024 Chronic Immunizations and screening for infectious disease (4 sources) Encounter for screening for other viral diseases; Translations: [ENC SCREENING FOR OTH VIRAL DZ] Onset: 10-29-2019 Episodic Other lower respiratory disease (1 source) Cough; Translations: [COUGH] Onset: 11-01-2019 Episodic Residual codes; unclassified (1 source) Pain, unspecified; Translations: [Pain, unspecified] Onset: 02-03-2024 Episodic Unclassified (1 source) Left Vetebral Dissection Onset: 02-02-2024 Past or Other Problems Problem Classification Problem Date Documented Da te Episodic/Chronic Mood disorders (2 sources) Mood disorders Onset: 02-02-2024 02-02-2024 Results Test Name Value Interpretation Reference Range Facility CBC AND AUTO DIFFon 02-08-20 24 ABSOLUTE BASOPHIL 0.1 X10E9/L Normal 0.0-0.2 [facility] Comment on above: Performed By: #### P INR, 3274-8, CBCA, CMP ####[facility] ([id number])[address], [address] [place] [address] ABSOLUTE NEUTROPHIL 9.2 X10E9/L High 1.5-6.6 [facility] Comment on above: Performed By: #### P INR, 3274-8, CBCA, CMP ####[facility] ([id number])[address] [facility], [place] [address] Basophils/100 WBC (Bld) 0.7 % Normal [facility] Comment on above: Performed By: #### P INR, 3274-8, CBCA, CMP ####[facility] ([id number])[address] [address], [place] [address] Eosinophils (Bld) [#/Vol] 0.2 10*3/uL Normal 0.0-0.4 [facility] Comment on above: Performed By: #### P INR, 3274-8, CBCA, CMP ####[facility] ([id number])[address] [address], [place] [address] Eosinophils/100 WBC (Bld) 1.2 % Normal [facility] Comment on above: Performed By: #### P INR, 3274-8, CBCA, CMP ####[facility] ([id number])[address] [address] Erythrocyte distribution width (RBC) [Ratio] 13.9 % Normal 11.5-15.0 [facility] Comment on above: Performed By: #### P INR, 3274-8, CBCA, CMP ####[facility] ([id number])[address] [address], [place] [address] Hematocrit (Bld) [Volume fraction] 40.3 % Normal 35-47 [facility] Comment on above: Performed By: #### P INR, 3274-8, CBCA, CMP ####[facility] ([id number])[address] [address] Hemoglobin (Bld) [Mass/Vol] 13.7 g/dL Normal 11.7-15.5 [facility] Comment on above: Performed By: #### P INR, 3274-8, CBCA, CMP ####[facility] ([id number])[address] [address] Lymphocytes (Bld) [#/Vol] 3.5 10*3/uL Normal 1.0-3.5 [facility] Comment on above: Performed By: #### P INR, 3274-8, CBCA, CMP ####[facility] ([id number])[address], [address], [place] [address] Lymphocytes/100 WBC (Bld) 24.9 % Normal [facility] Comment on above: Performed By: #### P INR, 3274-8, CBCA, CMP ####[facility] ([id number])[address], [address] [address] MCH (RBC) [Entitic mass] 31.3 pg Normal 27-34 [facility] Comment on above: Performed By: #### P INR, 4-8, CBCA, CMP ####[facility] ([id number])[address], [address] [address] MCHC (RBC) [Mass/Vol] 34.1 g/dL Normal 32-36 [facility] Comment on above: Performed By: #### P INR, 3274-8, CBCA, CMP ####[facility] ([id number])[address], [address] [place] [address], [place] [address] MCV (RBC) [Entitic vol] 92 fL Normal 80-100 [facility] Comment on above: Performed By: #### P INR, 3274-8, CBCA, CMP ####[facility] ([id number])[address] [address] [place] [address], [place] [address] Monocytes (Bld) [#/Vol] 1.0 10*3/uL High 0-0.9 [facility] Comment on above: Performed By: #### P INR, 3274-8, CBCA, CMP ####[facility] ([id number])[address] [address] [place] [address], [place] [address] Monocytes/100 WBC (Bld) 7.4 % Normal [facility] Comment on above: Performed By: #### P INR, 3274-8, CBCA, CMP ####[facility] ([id number])[address] [address] Neutrophils/100 WBC (Bld) 65.8 % Normal [facility] Comment on above: Performed By: #### P INR, 3274-8, CBCA, CMP ####[facility] ([id number])[address] [address] Platelet mean volume (Bld) [Entitic vol] 7.6 fL Normal 7-12 [facility] Comment on above: Performed By: #### P INR, 3274-8, CBCA, CMP ####[facility] ([id number])[address] [address] Platelets (Bld) [#/Vol] 237 10*3/uL Normal 150-450 [facility] Comment on above: Performed By: #### P INR, 3274-8, CBCA, CMP ####[facility] ([id number])[address] [address] RBC COUNT 4.38 X10E12/L Normal 3.80-5.20 [facility] Comment on above: Performed By: #### P INR, 3274-8, CBCA, CMP ####[facility] ([id number])[address] [address] WBC (Bld) [#/Vol] 14.0 10*3/uL High 4.0-11.0 [facility] Comment on above: Performed By: #### P INR, 3274-8, CBCA, CMP ####[facility] ([id number])[address] [address] COMPREHENSIVE METABOLIC PANE Norris 02-08-2024 Albumin [Mass/Vol] 3.4 g/dL Normal 3.2-5.3 [facility] Comment on above: Performed By: #### P INR, 3274-8, CBCA, CMP ####[facility] ([id number])[address], [address], [place] [address] ALP [Catalytic activity/Vol] 112 U/L Normal 39-130 [facility] Comment on above: Performed By: #### P INR, 3274-8, CBCA, CMP ####[facility] ([id number])[address], [address], [place] [address] ALT [Catalytic activity/Vol] 28 U/L Normal 0-31 [facility] Comment on above: Performed By: #### P INR, 3274-8, CBCA, CMP ####[facility] ([id number])[address], [address], [place] [address] Anion gap [Moles/Vol] 10 mmol/L Normal 5-15 [facility] Comment on above: Performed By: #### P INR, 3274-8, CBCA, CMP ####[facility] ([id number])[address], [address], [place] [address] AST [Catalytic activity/Vol] 27 U/L Normal 0-41 [facility] Comment on above: Performed By: #### P INR, 3274-8, CBCA, CMP ####[facility] ([id number])[address], [address], [place] [address] Bilirubin [Mass/Vol] 0.3 mg/dL Normal 0.3-1.2 [facility] Comment on above: Performed By: #### P INR, 3274-8, CBCA, CMP ####[facility] ([id number])[address], [address], [place] [address] Calcium [Mass/Vol] 8.6 mg/dL Normal 8.5-10.5 [facility] Comment on above: Performed By: #### P INR, 3274-8, CBCA, CMP ####[facility] ([id number])[address] [address] [place] [address] Chloride [Moles/Vol] 103 mmol/L Normal 98-109 [facility] Comment on above: Performed By: #### P INR, 3273-8, CBCA, CMP ####[facility] ([id number])[address], [address] [address] CO2 [Moles/Vol] 23 mmol/L Normal 22-32 [facility] Comment on above: Performed By: #### P INR, 3273-8, CBCA, CMP ####[facility] ([id number])[address] [address] [address] Creatinine [Mass/Vol] 0.53 mg/dL Normal 0.40-1.00 [facility] Comment on above: Result Comment: METH OD TRACEABLE TO IDMS STANDARD Performed By: #### P INR, 8, CBCA, CMP ####[facility] ([id number])[address] [address] [address] eGFR (CKD-EPI) NON-RACE DEPENDENT >90 Normal >59 [facility] Comment on above: Result Comment: Reported eGFR is based on the CKD-EPI 2021 equation that does not use a race coefficient. Performed By: #### P INR, 3273-8, CBCA, CMP ####[facility] ([id number])[address] [address] [address] Glucose [Mass/Vol] 139 mg/dL High 65-99 [facility] Comment on above: Performed By: #### P INR, 3274-8, CBCA, CMP ####[facility] ([id number])[address] [address] [address] Potassium [Moles/Vol] 4.3 mmol/L Normal 3.5-5.0 [facility] Comment on above: Performed By: #### P INR, 4-8, CBCA, CMP ####[facility] ([id number])[address], [address] [place] [address] Protein [Mass/Vol] 6.1 g/dL Normal 6.0-8.0 [facility] Comment on above: Performed By: #### P INR, 3273-8, CBCA, CMP ####[facility] ([id number])[address], [address] [place] [address] Sodium [Moles/Vol] 136 mmol/L Normal 134-146 [facility] Comment on above: Performed By: #### P INR, 3273-8, CBCA, CMP ####[facility] ([id number])[address] [address] Urea nitrogen [Mass/Vol] 10 mg/dL Normal 5-23 [facility] Comment on above: Performed By: #### P INR, 3273-8, CBCA, CMP ####[facility] ([id number])[address] [address] Glucose Glucometer (BldC) [M ass/Vol]on 02-08-2024 Glucose [Mass/Vol] 132 mg/dL High 65-99 [facility] Heparin unfractionated Chrom ogenic method Qn (PPP)on 02-08-2024 ANTI XA UFH 0.45 IU/mL Normal 0.30-0.70 [facility] Comment on above: Result Comment: Opti mal time for testing is 6 hrs post dosage This test is specific for monitoring patients on UFH, and is not recommended for use with other Anti-Xa medications. Performed By: #### P INR, 4-8, CBCA, CMP ####[facility] ([id number])[address] [address] PROTIME AND INRon 02-08-2024 INR Coag (PPP) [Relative time] 2.1 {INR} High 0.8-1.1 [facility] Comment on above: Performed By: #### P INR, 3274-8, CBCA, CMP ####[facility] ([id number])[address], [address] [place] [address] PT Coag (PPP) [Time] 24.1 s High 9.8-13.2 [facility] Comment on above: Performed By: #### P INR, 4-8, CBCA, CMP ####[facility] ([id number])[address], [address], [place] [address] CBC AND AUTO DIFFon 02-07-20 ABSOLUTE BASOPHIL 0.1 X10E9/L Normal 0.0-0.2 [facility] Comment on above: Performed By: #### C BCA, PINR, 3273-8, CMP ####[facility] ([id number])[address], [address] [place] [address] ABSOLUTE NEUTROPHIL 9.3 X10E9/L High 1.5-6.6 [facility] Comment on above: Performed By: #### C BCA, PINR, 3273-8, CMP ####[facility] ([id number])[address], [address], [place] [address] Basophils/100 WBC (Bld) 0.7 % Normal [facility] Comment on above: Performed By: #### C BCA, PINR, 3273-8, CMP ####[facility] ([id number])[address], [address], [place] [address] Eosinophils (Bld) [#/Vol] 0.2 10*3/uL Normal 0.0-0.4 [facility] Comment on above: Performed By: #### C BCA, PINR, 3273-8, CMP ####[facility] ([id number])[address], [address], [place] [address] Eosinophils/100 WBC (Bld) 1.3 % Normal [facility] Comment on above: Performed By: #### C TYSHAWN PINR, 3273-8, CMP ####[facility] ([id number])[address], [address] [address] Erythrocyte distribution width (RBC) [Ratio] 13.8 % Normal 11.5-15.0 [facility] Comment on above: Performed By: #### C TYSHAWN, PINR, 3273-8, CMP ####[facility] ([id number])[address], [address] [address] Hematocrit (Bld) [Volume fraction] 41.0 % Normal 35-47 [facility] Comment on above: Performed By: #### C TYSHAWN, PINR, 3273-8, CMP ####[facility] ([id number])[address] [address] [address] Hemoglobin (Bld) [Mass/Vol] 13.7 g/dL Normal 11.7-15.5 [facility] Comment on above: Performed By: #### Blessing VILLAGRAN, PINR, 3273-, CMP ####[facility] ([id number])[address] [address] [address] Lymphocytes (Bld) [#/Vol] 3.2 10*3/uL Normal 1.0-3.5 [facility] Comment on above: Performed By: #### C TYSHAWN, PINR, 3273-8, CMP ####[facility] ([id number])[address] [address] [address] Lymphocytes/100 WBC (Bld) 23.3 % Normal [facility] Comment on above: Performed By: #### C TYSHAWN, PINR, 3273-8, CMP ####[facility] ([id number])[address] [address] MCH (RBC) [Entitic mass] 30.5 pg Normal 27-34 [facility] Comment on above: Performed By: #### C TYSHAWN PINR, 3273-10, CMP ####[facility] ([id number])[address], [address] [address] MCHC (RBC) [Mass/Vol] 33.4 g/dL Normal 32-36 [facility] Comment on above: Performed By: #### C TYSHAWN PINR, 8, CMP ####[facility] ([id number])[address] [address] MCV (RBC) [Entitic vol] 91 fL Normal 80-100 [facility] Comment on above: Performed By: #### C TYSHAWN PINR, 3273-10, CMP ####[facility] ([id number])[address], [address] [address] Monocytes (Bld) [#/Vol] 1.0 10*3/uL High 0-0.9 [facility] Comment on above: Performed By: #### Blessing VILLAGRAN PINR, 3273-10, CMP ####[facility] ([id number])[address], [address] [address] Monocytes/100 WBC (Bld) 7.3 % Normal [facility] Comment on above: Performed By: #### Blessing VILLAGRAN PINR, 8, CMP ####[facility] ([id number])[address], [address] [address] Neutrophils/100 WBC (Bld) 67.4 % Normal [facility] Comment on above: Performed By: #### Blessing VILLAGRAN, PINR, 3273-8, CMP ####[facility] ([id number])[address], [address] [address] Platelet mean volume (Bld) [Entitic vol] 7.6 fL Normal 7-12 [facility] Comment on above: Performed By: #### C BCA, PINR, 3274-8, CMP ####[facility] ([id number])[address], [address] [place] [address] Platelets (Bld) [#/Vol] 292 10*3/uL Normal 150-450 [facility] Comment on above: Performed By: #### C BCA, PINR, 3274-8, CMP ####[facility] ([id number])[address] [address] RBC COUNT 4.49 X10E12/L Normal 3.80-5.20 [facility] Comment on above: Performed By: #### C BCA, PINR, 3274-8, CMP ####[facility] ([id number])[address] [address] [place] [address] WBC (Bld) [#/Vol] 13.8 10*3/uL High 4.0-11.0 [facility] Comment on above: Performed By: #### C BCA, PINR, 327-8, CMP ####[facility] ([id number])[address] [address] COMPREHENSIVE METABOLIC PANE Norris 02-07-2024 Albumin [Mass/Vol] 3.4 g/dL Normal 3.2-5.3 [facility] Comment on above: Performed By: #### C BCA, PINR, 3274-8, CMP ####[facility] ([id number])[address], [address] [address] ALP [Catalytic activity/Vol] 117 U/L Normal 39-130 [facility] Comment on above: Performed By: #### C BCA, PINR, 3274-8, CMP ####[facility] ([id number])[address] [address] ALT [Catalytic activity/Vol] 17 U/L Normal 0-31 [facility] Comment on above: Performed By: #### C TYSHAWN, PINR, 3273-8, CMP ####[facility] ([id number])[address], [place] [address] Anion gap [Moles/Vol] 10 mmol/L Normal 5-15 [facility] Comment on above: Performed By: #### C TYSHAWN, PINR, 3273-8, CMP ####[facility] ([id number])[address], [address], [place] [address] AST [Catalytic activity/Vol] 16 U/L Normal 0-41 [facility] Comment on above: Performed By: #### C BCA, PINR, 3273-8, CMP ####[facility] ([id number])[address], [address], [place] [address] Bilirubin [Mass/Vol] 0.3 mg/dL Normal 0.3-1.2 [facility] Comment on above: Performed By: #### C TYSHAWN, PINR, 3273-8, CMP ####[facility] ([id number])[address], [address], [place] [address] Calcium [Mass/Vol] 9.0 mg/dL Normal 8.5-10.5 [facility] Comment on above: Performed By: #### C BCA, PINR, 3273-8, CMP ####[facility] ([id number])[address], [address], [place] [address] Chloride [Moles/Vol] 102 mmol/L Normal 98-109 [facility] Comment on above: Performed By: #### C BCA, PINR, 3273-8, CMP ####[facility] ([id number])[address], [address], [place] [address] CO2 [Moles/Vol] 25 mmol/L Normal 22-32 [facility] Comment on above: Performed By: #### C BCA, PINR, 3274-8, CMP ####[facility] ([id number])[address] [address] [address] Creatinine [Mass/Vol] 0.55 mg/dL Normal 0.40-1.00 [facility] Comment on above: Result Comment: METH OD TRACEABLE TO IDMS STANDARD Performed By: #### C BCA, PINR, 3274-8, CMP ####[facility] ([id number])[address] [address], [place] [address] eGFR (CKD-EPI) NON-RACE DEPENDENT >90 Normal >59 [facility] Comment on above: Result Comment: Reported eGFR is based on the CKD-EPI 2020 equation that does not use a race coefficient. Performed By: #### C BCA, PINR, 3274-8, CMP ####[facility] ([id number])[address] [address] [address] Glucose [Mass/Vol] 171 mg/dL High 65-99 [facility] Comment on above: Performed By: #### C BCA, PINR, 4-8, CMP ####[facility] ([id number])[address] [address] [address] Potassium [Moles/Vol] 4.0 mmol/L Normal 3.5-5.0 [facility] Comment on above: Performed By: #### C BCA, PINR, 3274-8, CMP ####[facility] ([id number])[address] [address] [address] Protein [Mass/Vol] 6.2 g/dL Normal 6.0-8.0 [facility] Comment on above: Performed By: #### C BCA, PINR, 3274-8, CMP ####[facility] ([id number])[address] [address] [place] [address] Sodium [Moles/Vol] 137 mmol/L Normal 134-146 [facility] Comment on above: Performed By: #### FAHEEM Funk BCA, 3274-8, CMP ####[facility] ([id number])[address], [address] [place] [address] Urea nitrogen [Mass/Vol] 11 mg/dL Normal 5-23 [facility] Comment on above: Performed By: #### C FAHEEM VILLAGRAN, 3274-8, CMP ####[facility] ([id number])[address], [address] [place] [address] Glucose Glucometer (BldC) [M ass/Vol]on 02-07-2024 Glucose [Mass/Vol] 132 mg/dL High 65-99 [facility] Glucose [Mass/Vol] 216 mg/dL High 65-99 [facility] Glucose [Mass/Vol] 236 mg/dL High 65-99 [facility] Glucose [Mass/Vol] 184 mg/dL High 65-99 [facility] Heparin unfractionated Chrom ogenic method Qn (PPP)on 02-07-2024 ANTI XA UFH 0.42 IU/mL Normal 0.30-0.70 [facility] Comment on above: Result Comment: Opti mal time for testing is 6 hrs post dosage This test is specific for monitoring patients on UFH, and is not recommended for use with other Anti-Xa medications. Performed By: #### C FAHEEM VILLAGRAN, 3274-8, CMP ####[facility] ([id number])[address] [address] [place] [address] PROTIME AND INRon 02-07-2024 INR Coag (PPP) [Relative time] 1.5 {INR} High 0.8-1.1 [facility] Comment on above: Performed By: #### FAHEEM Funk BCA, 3274-8, CMP ####[facility] ([id number])[address], [address] [place] [address] PT Coag (PPP) [Time] 17.5 s High 9.8-13.2 [facility] Comment on above: Performed By: #### C TYSHAWN, PINR, 3273-8, CMP ####[facility] ([id number])[address], [address] [place] [address] CBC AND AUTO DIFFon 02-06-20 24 ABSOLUTE BASOPHIL 0.1 X10E9/L Normal 0.0-0.2 [facility] Comment on above: Performed By: #### C TYSHAWN, PINR, 3273-8, CMP ####[facility] ([id number])[address], [address] [place] [address] ABSOLUTE NEUTROPHIL 9.5 X10E9/L High 1.5-6.6 [facility] Comment on above: Performed By: #### Blessing VILLAGRAN, PINR, 3273-8, CMP ####[facility] ([id number])[address] [address] [place] [address] Basophils/100 WBC (Bld) 1.1 % Normal [facility] Comment on above: Performed By: #### Blessing VILLAGRAN, PINR, 3273-8, CMP ####[facility] ([id number])[address] [address] [place] [address] Eosinophils (Bld) [#/Vol] 0.1 10*3/uL Normal 0.0-0.4 [facility] Comment on above: Performed By: #### C BCA, PINR, 3273-8, CMP ####[facility] ([id number])[address] [address] [place] [address] Eosinophils/100 WBC (Bld) 0.6 % Normal [facility] Comment on above: Performed By: #### C TYSHAWN, PINR, 4-8, CMP ####[facility] ([id number])[address] [address] [place] [address] Erythrocyte distribution width (RBC) [Ratio] 13.9 % Normal 11.5-15.0 [facility] Comment on above: Performed By: #### C TYSHAWN PINR, 4-8, CMP ####[facility] ([id number])[address] [address] Hematocrit (Bld) [Volume fraction] 41.1 % Normal 35-47 [facility] Comment on above: Performed By: #### C TYSHAWN, PINR, 3273-8, CMP ####[facility] ([id number])[address] [address] Hemoglobin (Bld) [Mass/Vol] 14.3 g/dL Normal 11.7-15.5 [facility] Comment on above: Performed By: #### Blessing VILLAGRAN, PINR, 3273-8, CMP ####[facility] ([id number])[address] [address] Lymphocytes (Bld) [#/Vol] 2.9 10*3/uL Normal 1.0-3.5 [facility] Comment on above: Performed By: #### Blessing BCA, PINR, 3273-8, CMP ####[facility] ([id number])[address] [address] Lymphocytes/100 WBC (Bld) 21.6 % Normal [facility] Comment on above: Performed By: #### C BCA, PINR, 4-8, CMP ####[facility] ([id number])[address] [address] MCH (RBC) [Entitic mass] 31.4 pg Normal 27-34 [facility] Comment on above: Performed By: #### Blessing BCA, PINR, 4-8, CMP ####[facility] ([id number])[address], [address], [place] [address] MCHC (RBC) [Mass/Vol] 34.7 g/dL Normal 32-36 [facility] Comment on above: Performed By: #### C TYSHAWN, PINR, 3273-8, CMP ####[facility] ([id number])[address], [address] [place] [address] MCV (RBC) [Entitic vol] 91 fL Normal 80-100 [facility] Comment on above: Performed By: #### C TYSHAWN, PINR, 3273-8, CMP ####[facility] ([id number])[address], [address] [address] Monocytes (Bld) [#/Vol] 0.8 10*3/uL Normal 0-0.9 [facility] Comment on above: Performed By: #### Blessing VILLAGRAN, PINR, 3273-8, CMP ####[facility] ([id number])[address], [address] [place] [address] Monocytes/100 WBC (Bld) 5.9 % Normal [facility] Comment on above: Performed By: #### Blessing BCA, PINR, 3273-8, CMP ####[facility] ([id number])[address] [address] [place] [address] Neutrophils/100 WBC (Bld) 70.8 % Normal [facility] Comment on above: Performed By: #### C BCA, PINR, 3273-8, CMP ####[facility] ([id number])[address], [address], [place] [address] Platelet mean volume (Bld) [Entitic vol] 7.7 fL Normal 7-12 [facility] Comment on above: Performed By: #### C BCA, PINR, 4-8, CMP ####[facility] ([id number])[address], [address], [place] [address] Platelets (Bld) [#/Vol] 277 10*3/uL Normal 150-450 [facility] Comment on above: Performed By: #### C BCA, PINR, 3274-8, CMP ####[facility] ([id number])[address], [address] [place] [address] RBC COUNT 4.54 X10E12/L Normal 3.80-5.20 [facility] Comment on above: Performed By: #### C BCA, PINR, 3274-8, CMP ####[facility] ([id number])[address] [address] WBC (Bld) [#/Vol] 13.4 10*3/uL High 4.0-11.0 [facility] Comment on above: Performed By: #### C BCA, PINR, 3274-8, CMP ####[facility] ([id number])[address], [address] [place] [address] COMPREHENSIVE METABOLIC PANE Norris 02-06-2024 Albumin [Mass/Vol] 3.5 g/dL Normal 3.2-5.3 [facility] Comment on above: Performed By: #### C BCA, PINR, 3274-8, CMP ####[facility] ([id number])[address] [address] ALP [Catalytic activity/Vol] 118 U/L Normal 39-130 [facility] Comment on above: Performed By: #### C BCA, PINR, 3274-8, CMP ####[facility] ([id number])[address] [address] ALT [Catalytic activity/Vol] 12 U/L Normal 0-31 [facility] Comment on above: Performed By: #### C BCA, PINR, 3274-8, CMP ####[facility] ([id number])[address], [address], [place] [address] Anion gap [Moles/Vol] 10 mmol/L Normal 5-15 [facility] Comment on above: Performed By: #### C BCA, PINR, 3274-8, CMP ####[facility] ([id number])[address], [address], [place] [address] AST [Catalytic activity/Vol] 12 U/L Normal 0-41 [facility] Comment on above: Performed By: #### C BCA, PINR, 3274-8, CMP ####[facility] ([id number])[address], [address], [place] [address] Bilirubin [Mass/Vol] 0.3 mg/dL Normal 0.3-1.2 [facility] Comment on above: Performed By: #### C BCA, PINR, 3274-8, CMP ####[facility] ([id number])[address], [address], [place] [address] Calcium [Mass/Vol] 9.0 mg/dL Normal 8.5-10.5 [facility] Comment on above: Performed By: #### C BCA, PINR, 3274-8, CMP ####[facility] ([id number])[address], [address], [place] [address] Chloride [Moles/Vol] 101 mmol/L Normal 98-109 [facility] Comment on above: Performed By: #### C BCA, PINR, 3274-8, CMP ####[facility] ([id number])[address], [address], [place] [address] CO2 [Moles/Vol] 24 mmol/L Normal 22-32 [facility] Comment on above: Performed By: #### C BCA, PINR, 3274-8, CMP ####[facility] ([id number])[address], [address], [place] [address] Creatinine [Mass/Vol] 0.53 mg/dL Normal 0.40-1.00 [facility] Comment on above: Result Comment: METH OD TRACEABLE TO IDMS STANDARD Performed By: #### C TYSHAWN, PINR, 3273-8, CMP ####[facility] ([id number])[address], [address], [place] [address] eGFR (CKD-EPI) NON-RACE DEPENDENT >90 Normal >59 [facility] Comment on above: Result Comment: Reported eGFR is based on the CKD-EPI 2020 equation that does not use a race coefficient. Performed By: #### C BCA, PINR, 4-8, CMP ####[facility] ([id number])[address], [address], [place] [address] Glucose [Mass/Vol] 252 mg/dL High 65-99 [facility] Comment on above: Performed By: #### C BCA, PINR, 3273-8, CMP ####[facility] ([id number])[address] [address], [place] [address] Potassium [Moles/Vol] 4.0 mmol/L Normal 3.5-5.0 [facility] Comment on above: Performed By: #### C BCA, PINR, 3273-8, CMP ####[facility] ([id number])[address], [address] [address] Protein [Mass/Vol] 6.5 g/dL Normal 6.0-8.0 [facility] Comment on above: Performed By: #### C BCA, PINR, 4-8, CMP ####[facility] ([id number])[address] [address] [address] Sodium [Moles/Vol] 135 mmol/L Normal 134-146 [facility] Comment on above: Performed By: #### C BCA, PINR, 4-8, CMP ####[facility] ([id number])[address], [address], [place] [address] Urea nitrogen [Mass/Vol] 14 mg/dL Normal 5-23 [facility] Comment on above: Performed By: #### C FAHEEM VILLAGRAN, 3274-8, CMP ####[facility] ([id number])[address], [address], [place] [address] Glucose Glucometer (BldC) [M ass/Vol]on 02-06-2024 Glucose [Mass/Vol] 116 mg/dL High 65-99 [facility] Glucose [Mass/Vol] 176 mg/dL High 65-99 [facility] Glucose [Mass/Vol] 310 mg/dL High 65-99 [facility] Glucose [Mass/Vol] 245 mg/dL High 65-99 [facility] Heparin unfractionated Chrom ogenic method Qn (PPP)on 02-06-2024 ANTI XA UFH 0.44 IU/mL Normal 0.30-0.70 [facility] Comment on above: Result Comment: Opti mal time for testing is 6 hrs post dosage This test is specific for monitoring patients on UFH, and is not recommended for use with other Anti-Xa medications. Performed By: #### C FAHEEM VILLAGRAN, 3274-8, CMP ####[facility] ([id number])[address] [address] [place] [address] PROTIME AND INRon 02-06-2024 INR Coag (PPP) [Relative time] 1.1 {INR} Normal 0.8-1.1 [facility] Comment on above: Performed By: #### C FAHEEM VILLAGRAN, 3274-8, CMP ####[facility] ([id number])[address], [address], [place] [address] PT Coag (PPP) [Time] 13.3 s High 9.8-13.2 [facility] Comment on above: Performed By: #### C TYSHAWN PINMorales, 3274-8, CMP ####[facility] ([id number])[address], [address], [place] [address] CBC AND AUTO DIFFon 02-05-20 24 ABSOLUTE BASOPHIL 0.1 X10E9/L Normal 0.0-0.2 [facility] Comment on above: Performed By: #### P INR, 22958-7 #### [facility] ([id number]) [address], [address] [place] [address] ABSOLUTE NEUTROPHIL 8.8 X10E9/L High 1.5-6.6 [facility] Comment on above: Performed By: #### P INR, 42401-2 #### [facility] ([id number]) [address], [address] [place] [address] Basophils/100 WBC (Bld) 0.7 % Normal [facility] Comment on above: Performed By: #### P INR, 40107-8 #### [facility] ([id number]) [address], [address] [place] [address] Eosinophils (Bld) [#/Vol] 0.0 10*3/uL Normal 0.0-0.4 [facility] Comment on above: Performed By: #### P INR, 69374-3 #### [facility] ([id number]) [address], [address] [place] [address] Eosinophils/100 WBC (Bld) 0.3 % Normal [facility] Comment on above: Performed By: #### P INR, 18914-6 #### [facility] ([id number]) [address], [address] [place] [address] Erythrocyte distribution width (RBC) [Ratio] 13.6 % Normal 11.5-15.0 [facility] Comment on above: Performed By: #### P INR, 67509-1 #### [facility] ([id number]) [address], [address] [place] [address] Hematocrit (Bld) [Volume fraction] 41.3 % Normal 35-47 [facility] Comment on above: Performed By: #### P INR, 70916-8 #### [facility] ([id number]) [address], [facility] [address] [place] [address] Hemoglobin (Bld) [Mass/Vol] 14.4 g/dL Normal 11.7-15.5 [facility] Comment on above: Performed By: #### P INR, 78233-3 #### [facility] ([id number]) [address], [facility] [address] [place] [address] Lymphocytes (Bld) [#/Vol] 2.7 10*3/uL Normal 1.0-3.5 [facility] Comment on above: Performed By: #### P INR, 00076-5 #### [facility] ([id number]) [address], [facility] [address] [place] [address] Lymphocytes/100 WBC (Bld) 21.4 % Normal [facility] Comment on above: Performed By: #### P INR, 70539-8 #### [facility] ([id number]) [address], [address] [place] [address] MCH (RBC) [Entitic mass] 31.4 pg Normal 27-34 [facility] Comment on above: Performed By: #### P INR, 70869-0 #### [facility] ([id number]) [address], [address] [place] [address] MCHC (RBC) [Mass/Vol] 34.9 g/dL Normal 32-36 [facility] Comment on above: Performed By: #### P INR, 94785-9 #### [facility] ([id number]) [address], [address] [place] [address] MCV (RBC) [Entitic vol] 90 fL Normal 80-100 [facility] Comment on above: Performed By: #### P INR, 31698-1 #### [facility] ([id number]) [address], [address] [place] [address] Monocytes (Bld) [#/Vol] 1.0 10*3/uL High 0-0.9 [facility] Comment on above: Performed By: #### P INR, 40775-2 #### [facility] ([id number]) [address], [address] [place] [address] Monocytes/100 WBC (Bld) 8.2 % Normal [facility] Comment on above: Performed By: #### P INR, 45278-2 #### [facility] ([id number]) [address], [address] [place] [address] Neutrophils/100 WBC (Bld) 69.4 % Normal [facility] Comment on above: Performed By: #### P INR, 32779-9 #### [facility] ([id number]) [address], [address] [place] [address] Platelet mean volume (Bld) [Entitic vol] 7.8 fL Normal 7-12 [facility] Comment on above: Performed By: #### P INR, 98028-1 #### [facility] ([id number]) [address], [address] [place] [address] Platelets (Bld) [#/Vol] 309 10*3/uL Normal 150-450 [facility] Comment on above: Performed By: #### P INR, 55501-9 #### [facility] ([id number]) [address], [address] [place] [address] RBC COUNT 4.58 X10E12/L Normal 3.80-5.20 [facility] Comment on above: Performed By: #### P INR, 72778-9 #### [facility] ([id number]) [address], [address] [place] [address] WBC (Bld) [#/Vol] 12.6 10*3/uL High 4.0-11.0 [facility] Comment on above: Performed By: #### P INR, 95499-9 #### [facility] ([id number]) [address], [address] [place] [address] COMPREHENSIVE METABOLIC PANE Norris 02-05-2024 Albumin [Mass/Vol] 3.7 g/dL Normal 3.2-5.3 [facility] Comment on above: Performed By: #### P INR, 62706-5 #### [facility] ([id number]) [address], [address] [place] [address] ALP [Catalytic activity/Vol] 125 U/L Normal 39-130 [facility] Comment on above: Performed By: #### P INR, 50592-9 #### [facility] ([id number]) [address], [address] [place] [address] ALT [Catalytic activity/Vol] 9 U/L Normal 0-31 [facility] Comment on above: Performed By: #### P INR, 85305-5 #### [facility] ([id number]) [address], [address] [place] [address] Anion gap [Moles/Vol] 10 mmol/L Normal 5-15 [facility] Comment on above: Performed By: #### P INR, 85843-4 #### [facility] ([id number]) [address], [address] [place] [address] AST [Catalytic activity/Vol] 9 U/L Normal 0-41 [facility] Comment on above: Performed By: #### P INR, 88109-0 #### [facility] ([id number]) [address], [address] [place] [address] Bilirubin [Mass/Vol] 0.4 mg/dL Normal 0.3-1.2 [facility] Comment on above: Performed By: #### P INR, 06475-3 #### [facility] ([id number]) [address], [address] [place] [address] Calcium [Mass/Vol] 9.1 mg/dL Normal 8.5-10.5 [facility] Comment on above: Performed By: #### P INR, 93437-3 #### [facility] ([id number]) [address], [address] [place] [address] Chloride [Moles/Vol] 98 mmol/L Normal 98-109 [facility] Comment on above: Performed By: #### P INR, 76460-4 #### [facility] ([id number]) [address], [address] [place] [address] CO2 [Moles/Vol] 26 mmol/L Normal 22-32 [facility] Comment on above: Performed By: #### P INR, 22014-7 #### [facility] ([id number]) [address], [address] [place] [address] Creatinine [Mass/Vol] 0.57 mg/dL Normal 0.40-1.00 [facility] Comment on above: Result Comment: METH OD TRACEABLE TO IDMS STANDARD Performed By: #### P INR, 35424-7 #### [facility] ([id number]) [address], [address] [place] [address] eGFR (CKD-EPI) NON-RACE DEPENDENT >90 Normal >59 [facility] Comment on above: Result Comment: Reported eGFR is based on the CKD-EPI 2020 equation that does not use a race coefficient. Performed By: #### P INR, 39529-4 #### [facility] ([id number]) [address], [address] [place] [address] Glucose [Mass/Vol] 243 mg/dL High 65-99 [facility] Comment on above: Performed By: #### P INR, 36950-4 #### [facility] ([id number]) [address], [address] [place] [address] Potassium [Moles/Vol] 3.6 mmol/L Normal 3.5-5.0 [facility] Comment on above: Performed By: #### P INR, 19777-8 #### [facility] ([id number]) [address], [address] [place] [address] Protein [Mass/Vol] 6.7 g/dL Normal 6.0-8.0 [facility] Comment on above: Performed By: #### P INR, 63870-5 #### [facility] ([id number]) [address], [address] [place] [address] Sodium [Moles/Vol] 134 mmol/L Normal 134-146 [facility] Comment on above: Performed By: #### P INR, 31862-8 #### [facility] ([id number]) [address], [address] [place] [address] Urea nitrogen [Mass/Vol] 14 mg/dL Normal 5-23 [facility] Comment on above: Performed By: #### P INR, 19977-8 #### [facility] ([id number]) [address], [address] [place] [address] Glucose Glucometer (BldC) [M ass/Vol]on 02-05-2024 Glucose [Mass/Vol] 255 mg/dL High 65-99 [facility] Glucose [Mass/Vol] 208 mg/dL High 65-99 [facility] Glucose [Mass/Vol] 222 mg/dL High 65-99 [facility] Glucose [Mass/Vol] 241 mg/dL High 65-99 [facility] Glucose [Mass/Vol] 228 mg/dL High 65-99 [facility] Heparin unfractionated Chrom ogenic method Qn (PPP)on 02-05-2024 ANTI XA UFH 0.38 IU/mL Normal 0.30-0.70 [facility] Comment on above: Result Comment: Opti mal time for testing is 6 hrs post dosage This test is specific for monitoring patients on UFH, and is not recommended for use with other Anti-Xa medications. Performed By: #### P INR, 39948-6 #### [facility] ([id number]) [address], [address] [place] [address] ANTI XA UFH 0.39 IU/mL Normal 0.30-0.70 [facility] Comment on above: Result Comment: Opti mal time for testing is 6 hrs post dosage This test is specific for monitoring patients on UFH, and is not recommended for use with other Anti-Xa medications. Performed By: #### P INR, 11171-0 #### [facility] ([id number]) [address], [address] [place] [address] PROTIME AND INRon 02-05-2024 INR Coag (PPP) [Relative time] 1.0 {INR} Normal 0.8-1.1 [facility] Comment on above: Performed By: #### P INR, 69185-0 #### [facility] ([id number]) [address] [address] [place] [address] PT Coag (PPP) [Time] 11.8 s Normal 9.8-13.2 [facility] Comment on above: Performed By: #### P INR, 77248-1 #### [facility] ([id number]) [address] [address] [place] [address] CBC AND AUTO DIFFon 02-04-20 24 ABSOLUTE BASOPHIL 0.1 X10E9/L Normal 0.0-0.2 [facility] Comment on above: Performed By: #### P INR, 27069-4 #### [facility] ([id number]) [address], [address] [place] [address] ABSOLUTE NEUTROPHIL 11.5 X10E9/L High 1.5-6.6 [facility] Comment on above: Performed By: #### P INR, 35344-0 #### [facility] ([id number]) [address], [address] [place] [address] Basophils/100 WBC (Bld) 0.4 % Normal [facility] Comment on above: Performed By: #### P INR, 04478-4 #### [facility] ([id number]) [address], [address] [place] [address] Eosinophils (Bld) [#/Vol] 0.0 10*3/uL Normal 0.0-0.4 [facility] Comment on above: Performed By: #### P INR, 85602-7 #### [facility] ([id number]) [address] [place] [address] Eosinophils/100 WBC (Bld) 0.2 % Normal [facility] Comment on above: Performed By: #### P INR, 43883-4 #### [facility] ([id number]) [address] [place] [address] Erythrocyte distribution width (RBC) [Ratio] 14.2 % Normal 11.5-15.0 [facility] Comment on above: Performed By: #### P INR, 01970-8 #### [facility] ([id number]) [address] [place] [address] Hematocrit (Bld) [Volume fraction] 43.0 % Normal 35-47 [facility] Comment on above: Performed By: #### P INR, 01236-0 #### [facility] ([id number]) [address], [address] [place] [address] Hemoglobin (Bld) [Mass/Vol] 14.7 g/dL Normal 11.7-15.5 [facility] Comment on above: Performed By: #### P INR, 77564-1 #### [facility] ([id number]) [address], [address] [place] [address] Lymphocytes (Bld) [#/Vol] 1.7 10*3/uL Normal 1.0-3.5 [facility] Comment on above: Performed By: #### P INR, 06745-8 #### [facility] ([id number]) [address], [address] [place] [address] Lymphocytes/100 WBC (Bld) 11.8 % Normal [facility] Comment on above: Performed By: #### P INR, 29005-8 #### [facility] ([id number]) [address], [facility] [address] [place] [address] MCH (RBC) [Entitic mass] 31.1 pg Normal 27-34 [facility] Comment on above: Performed By: #### P INR, 41262-2 #### [facility] ([id number]) [address], [address] [place] [address] MCHC (RBC) [Mass/Vol] 34.1 g/dL Normal 32-36 [facility] Comment on above: Performed By: #### P INR, 45836-2 #### [facility] ([id number]) [address], [address] [place] [address] MCV (RBC) [Entitic vol] 91 fL Normal 80-100 [facility] Comment on above: Performed By: #### P INR, 73953-4 #### [facility] ([id number]) [address] [address] [place] [address] Monocytes (Bld) [#/Vol] 1.0 10*3/uL High 0-0.9 [facility] Comment on above: Performed By: #### P INR, 82089-1 #### [facility] ([id number]) [address], [address] [place] [address] Monocytes/100 WBC (Bld) 7.1 % Normal [facility] Comment on above: Performed By: #### P INR, 33944-6 #### [facility] ([id number]) [address], [address] [place] [address] Neutrophils/100 WBC (Bld) 80.5 % Normal [facility] Comment on above: Performed By: #### P INR, 43543-0 #### [facility] ([id number]) [address], [address] [place] [address] Platelet mean volume (Bld) [Entitic vol] 7.6 fL Normal 7-12 [facility] Comment on above: Performed By: #### P INR, 19744-2 #### [facility] ([id number]) [address], [address] [place] [address] Platelets (Bld) [#/Vol] 281 10*3/uL Normal 150-450 [facility] Comment on above: Performed By: #### P INR, 85760-9 #### [facility] ([id number]) [address], [address] [place] [address] RBC COUNT 4.72 X10E12/L Normal 3.80-5.20 [facility] Comment on above: Performed By: #### P INR, 01575-8 #### [facility] ([id number]) [address], [address] [place] [address] WBC (Bld) [#/Vol] 14.3 10*3/uL High 4.0-11.0 [facility] Comment on above: Performed By: #### P INR, 75967-6 #### [facility] ([id number]) [address], [address] [place] [address] COMPREHENSIVE METABOLIC PANE Norris 02-04-2024 Albumin [Mass/Vol] 3.9 g/dL Normal 3.2-5.3 [facility] Comment on above: Performed By: #### P INR, 48917-5 #### [facility] ([id number]) [address], [address] [place] [address] ALP [Catalytic activity/Vol] 127 U/L Normal 39-130 [facility] Comment on above: Performed By: #### P INR, 85721-9 #### [facility] ([id number]) [address], [address] [place] [address] ALT [Catalytic activity/Vol] 10 U/L Normal 0-31 [facility] Comment on above: Performed By: #### P INR, 59706-8 #### [facility] ([id number]) [address], [address] [place] [address] Anion gap [Moles/Vol] 10 mmol/L Normal 5-15 [facility] Comment on above: Performed By: #### P INR, 87813-8 #### [facility] ([id number]) [address], [address] [place] [address] AST [Catalytic activity/Vol] 10 U/L Normal 0-41 [facility] Comment on above: Performed By: #### P INR, 60837-9 #### [facility] ([id number]) [address], [address] [place] [address] Bilirubin [Mass/Vol] 0.5 mg/dL Normal 0.3-1.2 [facility] Comment on above: Performed By: #### P INR, 10356-5 #### [facility] ([id number]) [address], [address] [place] [address] Calcium [Mass/Vol] 9.1 mg/dL Normal 8.5-10.5 [facility] Comment on above: Performed By: #### P INR, 98375-5 #### [facility] ([id number]) [address], [address] [place] [address] Chloride [Moles/Vol] 99 mmol/L Normal 98-109 [facility] Comment on above: Performed By: #### P INR, 59912-7 #### [facility] ([id number]) [address], [address] [place] [address] CO2 [Moles/Vol] 23 mmol/L Normal 22-32 [facility] Comment on above: Performed By: #### P INR, 71219-7 #### [facility] ([id number]) [address], [facility] [address] [place] [address] Creatinine [Mass/Vol] 0.59 mg/dL Normal 0.40-1.00 [facility] Comment on above: Result Comment: METH OD TRACEABLE TO IDMS STANDARD Performed By: #### P INR, 08336-6 #### [facility] ([id number]) [address], [address] [place] [address] eGFR (CKD-EPI) NON-RACE DEPENDENT >90 Normal >59 [facility] Comment on above: Result Comment: Reported eGFR is based on the CKD-EPI 2020 equation that does not use a race coefficient. Performed By: #### P INR, 99071-1 #### [facility] ([id number]) [address], [address] [place] [address] Glucose [Mass/Vol] 299 mg/dL High 65-99 [facility] Comment on above: Performed By: #### P INR, 39724-2 #### [facility] ([id number]) [address] [address] [place] [address] Potassium [Moles/Vol] 4.1 mmol/L Normal 3.5-5.0 [facility] Comment on above: Performed By: #### P INR, 89354-0 #### [facility] ([id number]) [address], [address] [place] [address] Protein [Mass/Vol] 7.2 g/dL Normal 6.0-8.0 [facility] Comment on above: Performed By: #### P INR, 60401-7 #### [facility] ([id number]) [address], [address] [place] [address] Sodium [Moles/Vol] 132 mmol/L Low 134-146 [facility] Comment on above: Performed By: #### P INR, 66818-1 #### [facility] ([id number]) [address], [address] [place] [address] Urea nitrogen [Mass/Vol] 14 mg/dL Normal 5-23 [facility] Comment on above: Performed By: #### P INR, 94651-1 #### [facility] ([id number]) [address], [address] [place] [address] Glucose Glucometer (BldC) [M ass/Vol]on 02-04-2024 Glucose [Mass/Vol] 233 mg/dL High 65-99 [facility] Glucose [Mass/Vol] 287 mg/dL High 65-99 [facility] Glucose [Mass/Vol] 281 mg/dL High 65-99 [facility] Glucose [Mass/Vol] 348 mg/dL High 65-99 [facility] Glucose [Mass/Vol] 355 mg/dL High 65-99 [facility] Glucose [Mass/Vol] 288 mg/dL High 65-99 [facility] Heparin unfractionated Chrom ogenic method Qn (PPP)on 02-04-2024 ANTI XA UFH 0.29 IU/mL Low 0.30-0.70 [facility] Comment on above: Result Comment: Opti mal time for testing is 6 hrs post dosage This test is specific for monitoring patients on UFH, and is not recommended for use with other Anti-Xa medications. Performed By: #### P INR, 32631-7 #### [facility] ([id number]) [address], [address] [place] [address] ANTI XA UFH 0.26 IU/mL Low 0.30-0.70 [facility] Comment on above: Result Comment: Opti mal time for testing is 6 hrs post dosage This test is specific for monitoring patients on UFH, and is not recommended for use with other Anti-Xa medications. Performed By: #### P INR, 73506-0 #### [facility] ([id number]) [address], [address] [place] [address] ANTI XA UFH 0.31 IU/mL Normal 0.30-0.70 [facility] Comment on above: Result Comment: Opti mal time for testing is 6 hrs post dosage This test is specific for monitoring patients on UFH, and is not recommended for use with other Anti-Xa medications. Performed By: #### P INR, 93435-8 #### [facility] ([id number]) [address] [place] [address] ANTI XA UFH 0.20 IU/mL Low 0.30-0.70 [facility] Comment on above: Result Comment: Opti mal time for testing is 6 hrs post dosage This test is specific for monitoring patients on UFH, and is not recommended for use with other Anti-Xa medications. Performed By: #### P INR, 49482-0 #### [facility] ([id number]) [address], [address] [place] [address] MAGNESIUMon 02-04-2024 Magnesium [Mass/Vol] 2.3 mg/dL Normal 1.8-2.6 [facility] Comment on above: Performed By: #### P INR, 60554-0 #### [facility] ([id number]) [address] [place] [address] Magnesium [Mass/Vol] 1.8 mg/dL Normal 1.8-2.6 [facility] Comment on above: Performed By: #### C BCA, CMP #### [facility] ([id number]) [address], [address] [place] [address] PROTIME AND INRon 02-04-2024 INR Coag (PPP) [Relative time] 1.0 {INR} Normal 0.8-1.1 [facility] Comment on above: Performed By: #### P INR, 29706-6 #### [facility] ([id number]) [address], [address] [place] [address] PT Coag (PPP) [Time] 11.2 s Normal 9.8-13.2 [facility] Comment on above: Performed By: #### P INR, 39737-2 #### [facility] ([id number]) [address], [address] [place] [address] ANTI CARDIOLIPIN AB IGG IGA IGMon 02-03-2024 REINALDO IgA <2.0 Normal 0-19.9 [facility] Comment on above: Performed By: #### C BCA, CMP #### [facility] ([id number]) [address] [place] [address] REINALDO IgG 2.8 GPL Normal 0-19.9 [facility] Comment on above: Performed By: #### C BCA, CMP #### [facility] ([id number]) [address] [place] [address] REINALDO IgM 10.4 MPL Normal 0-19.9 [facility] Comment on above: Performed By: #### C BCA, CMP #### [facility] ([id number]) [address], [address] [place] [address] BETA-2 GP1 AB PANELon 2023 BETA-2 GP1 IgA <2.0 Normal 0.0-19.9 [facility] Comment on above: Performed By: #### C BCA, CMP #### [facility] ([id number]) [address], [address] [place] [address] BETA-2 GP1 IgG <1.4 Normal 0.0-19.9 [facility] Comment on above: Performed By: #### C TYSHAWN, CMP #### [facility] ([id number]) [address], [address] [place] [address] BETA-2 GP1 IgM 7.5 u/mL Normal 0.0-19.9 [facility] Comment on above: Performed By: #### C TYSHAWN, CMP #### [facility] ([id number]) [address], [facility] [address] [place] [address] CBC AND AUTO DIFFon 02-03-20 24 ABSOLUTE BASOPHIL 0.1 X10E9/L Normal 0.0-0.2 [facility] Comment on above: Performed By: #### C TYSHAWN, CMP #### [facility] ([id number]) [address], [address] [place] [address] ABSOLUTE NEUTROPHIL 9.3 X10E9/L High 1.5-6.6 [facility] Comment on above: Performed By: #### C TYSHAWN, CMP #### [facility] ([id number]) [address], [address] [place] [address] Basophils/100 WBC (Bld) 0.7 % Normal [facility] Comment on above: Performed By: #### C TYSHAWN, CMP #### [facility] ([id number]) [address] [place] [address] Eosinophils (Bld) [#/Vol] 0.0 10*3/uL Normal 0.0-0.4 [facility] Comment on above: Performed By: #### C TYSHAWN, CMP #### [facility] ([id number]) [address] [place] [address] Eosinophils/100 WBC (Bld) 0.2 % Normal [facility] Comment on above: Performed By: #### C TYSHAWN, CMP #### [facility] ([id number]) [address], [address] [place] [address] Erythrocyte distribution width (RBC) [Ratio] 13.8 % Normal 11.5-15.0 [facility] Comment on above: Performed By: #### C BCA, CMP #### [facility] ([id number]) [address], [address] [place] [address] Hematocrit (Bld) [Volume fraction] 41.5 % Normal 35-47 [facility] Comment on above: Performed By: #### C TYSHAWN, CMP #### [facility] ([id number]) [address] [place] [address] Hemoglobin (Bld) [Mass/Vol] 14.0 g/dL Normal 11.7-15.5 [facility] Comment on above: Performed By: #### Blessing VILLAGRAN, CMP #### [facility] ([id number]) [address] [place] [address] Lymphocytes (Bld) [#/Vol] 2.6 10*3/uL Normal 1.0-3.5 [facility] Comment on above: Performed By: #### C TYSHAWN, CMP #### [facility] ([id number]) [address], [address] [place] [address] Lymphocytes/100 WBC (Bld) 20.3 % Normal [facility] Comment on above: Performed By: #### C TYSHAWN, CMP #### [facility] ([id number]) [address], [address] [place] [address] MCH (RBC) [Entitic mass] 31.0 pg Normal 27-34 [facility] Comment on above: Performed By: #### C BCA, CMP #### [facility] ([id number]) [address], [address] [place] [address] MCHC (RBC) [Mass/Vol] 33.8 g/dL Normal 32-36 [facility] Comment on above: Performed By: #### C BCA, CMP #### [facility] ([id number]) [address], [address] [place] [address] MCV (RBC) [Entitic vol] 92 fL Normal 80-100 [facility] Comment on above: Performed By: #### C BCA, CMP #### [facility] ([id number]) [address] [place] [address] Monocytes (Bld) [#/Vol] 0.7 10*3/uL Normal 0-0.9 [facility] Comment on above: Performed By: #### C BCA, CMP #### [facility] ([id number]) [address], [address] [place] [address] Monocytes/100 WBC (Bld) 5.5 % Normal [facility] Comment on above: Performed By: #### C BCA, CMP #### [facility] ([id number]) [address] [place] [address] Neutrophils/100 WBC (Bld) 73.3 % Normal [facility] Comment on above: Performed By: #### C BCA, CMP #### [facility] ([id number]) [address] [place] [address] Platelet mean volume (Bld) [Entitic vol] 8.0 fL Normal 7-12 [facility] Comment on above: Performed By: #### C BCA, CMP #### [facility] ([id number]) [address], [address] [place] [address] Platelets (Bld) [#/Vol] 294 10*3/uL Normal 150-450 [facility] Comment on above: Performed By: #### C BCA, CMP #### [facility] ([id number]) [address], [address] [place] [address] RBC COUNT 4.52 X10E12/L Normal 3.80-5.20 [facility] Comment on above: Performed By: #### C BCA, CMP #### [facility] ([id number]) [address] [place] [address] WBC (Bld) [#/Vol] 12.7 10*3/uL High 4.0-11.0 [facility] Comment on above: Performed By: #### C BCA, CMP #### [facility] ([id number]) [address] [place] [address] COMPREHENSIVE METABOLIC PANE Norris 02-03-2024 Albumin [Mass/Vol] 3.9 g/dL Normal 3.2-5.3 [facility] Comment on above: Performed By: #### C BCA, CMP #### [facility] ([id number]) [address], [address] [place] [address] ALP [Catalytic activity/Vol] 124 U/L Normal 39-130 [facility] Comment on above: Performed By: #### C BCA, CMP #### [facility] ([id number]) [address] [place] [address] ALT [Catalytic activity/Vol] 11 U/L Normal 0-31 [facility] Comment on above: Performed By: #### C BCA, CMP #### [facility] ([id number]) [address] [place] [address] Anion gap [Moles/Vol] 11 mmol/L Normal 5-15 [facility] Comment on above: Performed By: #### C BCA, CMP #### [facility] ([id number]) [address] [place] [address] AST [Catalytic activity/Vol] 9 U/L Normal 0-41 [facility] Comment on above: Performed By: #### C BCA, CMP #### [facility] ([id number]) [address] [address] [place] [address] Bilirubin [Mass/Vol] 0.4 mg/dL Normal 0.3-1.2 [facility] Comment on above: Performed By: #### C BCA, CMP #### [facility] ([id number]) [address] [address] [place] [address] Calcium [Mass/Vol] 9.2 mg/dL Normal 8.5-10.5 [facility] Comment on above: Performed By: #### C BCA, CMP #### [facility] ([id number]) [address] [address] [place] [address] Chloride [Moles/Vol] 99 mmol/L Normal 98-109 [facility] Comment on above: Performed By: #### C BCA, CMP #### [facility] ([id number]) [address] [address] CO2 [Moles/Vol] 24 mmol/L Normal 22-32 [facility] Comment on above: Performed By: #### C BCA, CMP #### [facility] ([id number]) [address] [address] Creatinine [Mass/Vol] 0.58 mg/dL Normal 0.40-1.00 [facility] Comment on above: Result Comment: METH OD TRACEABLE TO IDMS STANDARD Performed By: #### C BCA, CMP #### [facility] ([id number]) [address] [address] [place] [address] eGFR (CKD-EPI) NON-RACE DEPENDENT >90 Normal >59 [facility] Comment on above: Result Comment: Reported eGFR is based on the CKD-EPI 2020 equation that does not use a race coefficient. Performed By: #### C BCA, CMP #### [facility] ([id number]) [address] [place] [address] Glucose [Mass/Vol] 258 mg/dL High 65-99 [facility] Comment on above: Performed By: #### C BCA, CMP #### [facility] ([id number]) [address] [place] [address] Potassium [Moles/Vol] 3.7 mmol/L Normal 3.5-5.0 [facility] Comment on above: Performed By: #### C BCA, CMP #### [facility] ([id number]) [address] [place] [address] Protein [Mass/Vol] 7.1 g/dL Normal 6.0-8.0 [facility] Comment on above: Performed By: #### C BCA, CMP #### [facility] ([id number]) [address] [place] [address] Sodium [Moles/Vol] 134 mmol/L Normal 134-146 [facility] Comment on above: Performed By: #### C BCA, CMP #### [facility] ([id number]) [address] [place] [address] Urea nitrogen [Mass/Vol] 12 mg/dL Normal 5-23 [facility] Comment on above: Performed By: #### C BCA, CMP #### [facility] ([id number]) [address] [place] [address] LIANA PANELon 02-03-2024 ANTI-ALVARENGA AB IGG <0.2 Normal <1.0 [facility] Comment on above: Performed By: #### C BCA, CMP #### [facility] ([id number]) [address] [place] [address] JO1 ANTIBODY <0.2 Normal <1.0 [facility] Comment on above: Performed By: #### C BCA, CMP #### [facility] ([id number]) [address] [place] [address] PEANUT BLANCHER ANTIBODY IGG <0.2 Normal <1.0 [facility] Comment on above: Performed By: #### C BCA, CMP #### [facility] ([id number]) [address] [place] [address] SCL 70 ANTIBODY <0.2 Normal <1.0 [facility] Comment on above: Performed By: #### C BCA, CMP #### [facility] ([id number]) [address] [place] [address] SSA ANTIBODY <0.2 Normal <1.0 [facility] Comment on above: Performed By: #### C BCA, CMP #### [facility] ([id number]) [address] [place] [address] SSB ANTIBODY <0.2 Normal <1.0 [facility] Comment on above: Performed By: #### C BCA, CMP #### [facility] ([id number]) [address] [place] [address] Glucose Glucometer (BldC) [M ass/Vol]on 02-03-2024 Glucose [Mass/Vol] 244 mg/dL High 65-99 [facility] Glucose [Mass/Vol] 247 mg/dL High 65-99 [facility] Glucose [Mass/Vol] 266 mg/dL High 65-99 [facility] Glucose [Mass/Vol] 280 mg/dL High 65-99 [facility] Glucose [Mass/Vol] 274 mg/dL High 65-99 [facility] HGB A1C (GLYCO-HGB)on 2023 Glucose [Mass/Vol] 249 mg/dL Normal [facility] Comment on above: Performed By: #### C BCA, CMP #### [facility] ([id number]) [address] [place] [address] HbA1c (Bld) [Mass fraction] 10.3 % High 4.4-5.6 [facility] Comment on above: Result Comment: NOTE ADA Guidelines Result HgbA1c Normal : less than 5.7 % Prediabetes : 5.7 % to 6.4 % Diabetes : > 6.4 % Use with caution in patients with abnormal hemoglobin variants as the half-life of red blood cells and in vivo glycation rates are affected. Performed By: #### C TYSHAWN, CMP #### [facility] ([id number]) [facility] [address] Heparin unfractionated Chrom ogenic method Qn (PPP)on 02-03-2024 ANTI XA UFH 0.18 IU/mL Low 0.30-0.70 [facility] Comment on above: Result Comment: Opti mal time for testing is 6 hrs post dosage This test is specific for monitoring patients on UFH, and is not recommended for use with other Anti-Xa medications. Performed By: #### C BCA, CMP #### [facility] ([id number]) [address] [place] [address] Homocysteine [Moles/Vol]on 04-04-2023 HOMOCYSTEINE 8.32 mcmol/L Normal 3.36-20.44 [facility] Comment on above: Performed By: #### C BCA, CMP #### [facility] ([id number]) [address] [place] [id number] Lipid 1996 panelon Cholesterol [Mass/Vol] 171 mg/dL Normal 150-200 [facility] Comment on above: Performed By: #### C BCA, CMP #### [facility] ([id number]) [address] [address] Cholesterol in HDL [Mass/Vol] 30 mg/dL Low >39 [facility] Comment on above: Result Comment: HDL <40 mg/dL - High Risk HDL > or = 40mg/dL- Desirable HDL >60 mg/dL - Negative Risk Performed By: #### C BCA, CMP #### [facility] ([id number]) [address], [address] [place] [address] Cholesterol in LDL [Mass/Vol] 110 mg/dL Normal <130 [facility] Comment on above: Result Comment: LDL <100 mg/dL - Desirable LDL >160 mg/dL - High Risk Performed By: #### C BCA, CMP #### [facility] ([id number]) [address], [address] [place] [address] Cholesterol in VLDL [Mass/Vol] 31 mg/dL High 0-30 [facility] Comment on above: Performed By: #### C BCA, CMP #### [facility] ([id number]) [address], [address] [place] [address] CHOLESTEROL:HDL 5.7 High 1.0-5.0 [facility] Comment on above: Performed By: #### C BCA, CMP #### [facility] ([id number]) [address], [address] [place] [address] Triglyceride [Mass/Vol] 153 mg/dL High 27-150 [facility] Comment on above: Performed By: #### C BCA, CMP #### [facility] ([id number]) [address], [address] [place] [address] POTASSIUMon 02-03-2024 Potassium [Moles/Vol] 4.3 mmol/L Normal 3.5-5.0 [facility] Comment on above: Performed By: #### C TYSHAWN, CMP #### [facility] ([id number]) [address] [address] PROTIME AND INRon 02-03-2024 INR Coag (PPP) [Relative time] 1.0 {INR} Normal 0.8-1.1 [facility] Comment on above: Performed By: #### C TYSHAWN, CMP #### [facility] ([id number]) [address] [address] PT Coag (PPP) [Time] 11.7 s Normal 9.8-13.2 [facility] Comment on above: Performed By: #### C TYSHAWN, CMP #### [facility] ([id number]) [address] [address] T. pallidum IgG+IgM IA Ql (S )on 02-03-2024 Syphilis Total <0.2 Normal 0.0-0.8 [facility] Comment on above: Result Comment: NON REACTIVE No serologic evidence of infection to Treponema pallidum (syphilis). Repeat testing may be considered in patients with suspected acute or primary syphilis in 2 to 4 weeks. Performed By: #### C TYSHAWN, CMP #### [facility] ([id number]) [address] [address] aPTT Coag (PPP) [Time]on aPTT Coag (Bld) [Time] 42 s High 26-37 [facility] Comment on above: Performed By: #### C TYSHAWN, CMP #### [facility] ([id number]) [facility] [address] [address] dRVVT/dRVVT.excess phospholi pid Coag (PPP) [Ratio]on 02-03-2024 DILUTE NAVDEEP'S VIPER VENOM Negative Normal [facility] Comment on above: Performed By: #### 5 0410-0 ####[facility] ([id number])[address], [address], [place] [address] CBC AND AUTO DIFFon 02-02-20 24 ABSOLUTE BASOPHIL 0.3 X10E9/L High 0.0-0.2 [facility] Comment on above: Performed By: #### C BCA, CMP #### [facility] ([id number]) [address], [address] [place] [address] ABSOLUTE NEUTROPHIL 10.4 X10E9/L High 1.5-6.6 [facility] Comment on above: Performed By: #### C TYSHAWN, CMP #### [facility] ([id number]) [address], [address] [place] [address] Basophils/100 WBC (Bld) 2.2 % Normal [facility] Comment on above: Performed By: #### C TYSHAWN, CMP #### [facility] ([id number]) [address], [address] [place] [address] Eosinophils (Bld) [#/Vol] 0.0 10*3/uL Normal 0.0-0.4 [facility] Comment on above: Performed By: #### C TYSHAWN, CMP #### [facility] ([id number]) [address], [address] [place] [address] Eosinophils/100 WBC (Bld) 0.2 % Normal [facility] Comment on above: Performed By: #### C BCA, CMP #### [facility] ([id number]) [address], [address] [place] [address] Erythrocyte distribution width (RBC) [Ratio] 13.9 % Normal 11.5-15.0 [facility] Comment on above: Performed By: #### C BCA, CMP #### [facility] ([id number]) [address], [address] [place] [address] Hematocrit (Bld) [Volume fraction] 41.8 % Normal 35-47 [facility] Comment on above: Performed By: #### C BCA, CMP #### [facility] ([id number]) [address], [address] [place] [address] Hemoglobin (Bld) [Mass/Vol] 14.6 g/dL Normal 11.7-15.5 [facility] Comment on above: Performed By: #### C BCA, CMP #### [facility] ([id number]) [address], [address] [place] [address] Lymphocytes (Bld) [#/Vol] 1.0 10*3/uL Normal 1.0-3.5 [facility] Comment on above: Performed By: #### C BCA, CMP #### [facility] ([id number]) [address], [address] [place] [address] Lymphocytes/100 WBC (Bld) 7.7 % Normal [facility] Comment on above: Performed By: #### C BCA, CMP #### [facility] ([id number]) [address], [address] [place] [address] MCH (RBC) [Entitic mass] 31.8 pg Normal 27-34 [facility] Comment on above: Performed By: #### C BCA, CMP #### [facility] ([id number]) [address], [address] [place] [address] MCHC (RBC) [Mass/Vol] 34.9 g/dL Normal 32-36 [facility] Comment on above: Performed By: #### C BCA, CMP #### [facility] ([id number]) [address], [address] [place] [address] MCV (RBC) [Entitic vol] 91 fL Normal 80-100 [facility] Comment on above: Performed By: #### C BCA, CMP #### [facility] ([id number]) [address], [address] [place] [address] Monocytes (Bld) [#/Vol] 0.7 10*3/uL Normal 0-0.9 [facility] Comment on above: Performed By: #### C TYSHAWN, CMP #### [facility] ([id number]) [address], [address] [place] [address] Monocytes/100 WBC (Bld) 5.3 % Normal [facility] Comment on above: Performed By: #### C TYSHAWN, CMP #### [facility] ([id number]) [address], [address] [place] [address] Neutrophils/100 WBC (Bld) 84.6 % Normal [facility] Comment on above: Performed By: #### C TYSHAWN, CMP #### [facility] ([id number]) [address], [address] [place] [address] Platelet mean volume (Bld) [Entitic vol] 7.2 fL Normal 7-12 [facility] Comment on above: Performed By: #### C TYSHAWN, CMP #### [facility] ([id number]) [address], [address] [place] [address] Platelets (Bld) [#/Vol] 282 10*3/uL Normal 150-450 [facility] Comment on above: Performed By: #### C TYSHAWN, CMP #### [facility] ([id number]) [address], [address] [place] [address] RBC COUNT 4.58 X10E12/L Normal 3.80-5.20 [facility] Comment on above: Performed By: #### C TYSHAWN, CMP #### [facility] ([id number]) [address], [address] [place] [address] WBC (Bld) [#/Vol] 12.3 10*3/uL High 4.0-11.0 [facility] Comment on above: Performed By: #### C TYSHAWN, CMP #### [facility] ([id number]) [address] [place] [address] COMPREHENSIVE METABOLIC PANE Norris 02-02-2024 Albumin [Mass/Vol] 3.9 g/dL Normal 3.2-5.3 [facility] Comment on above: Performed By: #### C BCA, CMP #### [facility] ([id number]) [address] [place] [address] ALP [Catalytic activity/Vol] 128 U/L Normal 39-130 [facility] Comment on above: Performed By: #### C BCA, CMP #### [facility] ([id number]) [address] [place] [address] ALT [Catalytic activity/Vol] 10 U/L Normal 0-31 [facility] Comment on above: Performed By: #### C BCA, CMP #### [facility] ([id number]) [address] [place] [address] Anion gap [Moles/Vol] 12 mmol/L Normal 5-15 [facility] Comment on above: Performed By: #### C BCA, CMP #### [facility] ([id number]) [address] [place] [address] AST [Catalytic activity/Vol] 9 U/L Normal 0-41 [facility] Comment on above: Performed By: #### C BCA, CMP #### [facility] ([id number]) [address] [place] [address] Bilirubin [Mass/Vol] 0.5 mg/dL Normal 0.3-1.2 [facility] Comment on above: Performed By: #### C BCA, CMP #### [facility] ([id number]) [address] [place] [address] Calcium [Mass/Vol] 9.4 mg/dL Normal 8.5-10.5 [facility] Comment on above: Performed By: #### C BCA, CMP #### [facility] ([id number]) [address], [address] [place] [address] Chloride [Moles/Vol] 99 mmol/L Normal 98-109 [facility] Comment on above: Performed By: #### C BCA, CMP #### [facility] ([id number]) [address], [address] [place] [address] CO2 [Moles/Vol] 22 mmol/L Normal 22-32 [facility] Comment on above: Performed By: #### C BCA, CMP #### [facility] ([id number]) [address] [place] [address] Creatinine [Mass/Vol] 0.60 mg/dL Normal 0.40-1.00 [facility] Comment on above: Result Comment: METH OD TRACEABLE TO IDMS STANDARD Performed By: #### C BCA, CMP #### [facility] ([id number]) [address], [address] [place] [address] eGFR (CKD-EPI) NON-RACE DEPENDENT >90 Normal >59 [facility] Comment on above: Result Comment: Reported eGFR is based on the CKD-EPI 2020 equation that does not use a race coefficient. Performed By: #### C BCA, CMP #### [facility] ([id number]) [address], [address] [place] [address] Glucose [Mass/Vol] 276 mg/dL High 65-99 [facility] Comment on above: Performed By: #### C BCA, CMP #### [facility] ([id number]) [address], [address] [place] [address] Potassium [Moles/Vol] 3.9 mmol/L Normal 3.5-5.0 [facility] Comment on above: Performed By: #### C BCA, CMP #### [facility] ([id number]) [address], [address] [place] [address] Protein [Mass/Vol] 7.3 g/dL Normal 6.0-8.0 [facility] Comment on above: Performed By: #### C BCA, CMP #### [facility] ([id number]) [address], [address] [place] [address] Sodium [Moles/Vol] 133 mmol/L Low 134-146 [facility] Comment on above: Performed By: #### C BCA, CMP #### [facility] ([id number]) [address], [address] [place] [address] Urea nitrogen [Mass/Vol] 11 mg/dL Normal 5-23 [facility] Comment on above: Performed By: #### C BCA, CMP #### [facility] ([id number]) [address], [address] [place] [address] CT BRAIN WO CONT[address] BRAIN WO CONT CT BRAIN WO CONT HISTORY: A 48-year-old female with the history of the stroke. Follow-up examination. EXAM/TECHNIQUE: Multidetector spiral CT scan of brain is performed. Multiplanar reconstruction images are reformatted. All CT scans at this facility use dose modulation, iterative reconstruction, and/or weight based dosing when appropriate to reduce radiation dose to as low as reasonably achievable. COMPARISON: Comparison is made with MRI examination of the brain of 02/02/2024. FINDINGS: The ventricular system is normal in size and configuration. There is a hypodensity involving the left thalamus, medial aspect of the left temporal lobe. Appearance is consistent with acute/subacute age of infarction There is no evidence of intracranial hemorrhage. Hypodensities seen in the left cerebellum consistent with multifocal infarctions. No mass effect, midline shift of the structures or extra-axial fluid collections are noted. The calvarium is intact. The visualized paranasal sinuses and mastoid air cells are clear. IMPRESSION: * Hypodensity in the left thalamus and the medial aspect of the left temporal lobe, consistent with acute/subacute age of infarction. * Multifocal infarction is noted in the left cerebellum. * No evidence of intracranial hemorrhage or midline shift of the structures. Finalized by Delon Arizmendi MD on 02/02/2024 9:25 PM Normal [facility] CT CTA CAROTIDon 02-02-[address] CTA CAROTID CLINICAL HISTORY: A 48-year-old female with the history of the stroke. Follow-up examination. TECHNIQUE: Multidetector spiral CT scan of the neck is performed by using CT angiogram protocol. The patient received 100 mL of Omnipaque 350 intravenously. Coronal and sagittal and 3-D volume rendered maximum intensity projection images generated on separate workstation. All CT scans at this facility use dose modulation, iterative reconstruction, and/or weight based dosing when appropriate to reduce radiation dose to as low as reasonably achievable. NOTE: The [place] Symptomatic Carotid Endarterectomy Trial (NASCET)calculation of ICA stenosis percentage using the following formula with a threshold of 60 to 70%: % ICA stenosis = (1 - [narrowest ICA diameter/diameter normal distal cervical ICA]) x 100 COMPARISON: Comparison is made with the CT scan of the brain of 02/02/2024. FINDINGS: CT angiogram reveals normal caliber of the aortic arch. The right innominate, left common carotid and left subclavian arteries are patent without evidence of aneurysm or significant stenosis. The right common carotid and right subclavian arteries are patent. There is common origin of the right innominate and left vertebral arteries. Right vertebral artery is patent without evidence of significant stenosis or dissection. There is a nonvisualization of the contrast in the proximal and distal left vertebral artery. Made with arteries opacified. Changes are suggestive of slow flow, severe stenosis or occlusion of the left vertebral artery. At both carotid bifurcations, there is no evidence of significant atherosclerotic disease or stenosis at the carotid bifurcation and proximal internal carotid arteries.There is no evidence of dissection of the cervical internal carotid arteries. IMPRESSION: 1. Both carotid bifurcations are patent without evidence of significant atherosclerotic disease or stenosis. 2. Right vertebral artery is patent. Nonopacification of the proximal and distal left vertebral artery suggestive of very slow flow, significant stenosis or occlusion. 3. Great vessels of the aortic arch are patent without evidence of aneurysm or significant stenosis. Bovine arch. Finalized by Delon Arizmendi MD on 02/02/2024 9:36 PM Normal [facility] CT CTA HEADon 02-02-[address] CTA HEAD HISTORY: A 48-year-old female with the history of the stroke. Follow-up examination. TECHNIQUE: Multidetector spiral CT scan of the head is performed by using CT angiogram protocol. The patient received 100 mL of Omnipaque [address] angiogram is performed. MIP and/or 3-D reconstruction images are reformatted. All CT scans at this facility use dose modulation, iterative reconstruction, and/or weight based dosing when appropriate to reduce radiation dose to as low as reasonably achievable. Note:Arterial blood flow was measured to assist the stroke clinical team in the diagnosis of large vessel occlusion in patients undergoing screening for acute ischemic stroke using Rapid AI software when clinically indicated. COMPARISON: Comparison is made with the CT scan of the brain of 02/02/2024. FINDINGS: CT angiogram demonstrates patent both intracranial internal and cavernous carotid arteries are patent without significant stenosis. There is a common origin of the right innominate and left common carotid arteries. The basilar artery is smaller in caliber. Right distal vertebral arteries patent. There is nonvisualization of the distal left vertebral artery consistent with occlusion. Anterior, middle and posterior cerebral arteries are patent. There is no evidence of significant stenosis of the large vessels. There is no evidence of aneurysm or arteriovenous malformation intracranially. The deep venous system and dural venous sinuses appear to be patent. IMPRESSION: 1. 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 Basilar artery is smaller in caliber. 2. Other large vessels are patent without evidence of significant stenosis.. 3. No evidence of aneurysm or arteriovenous malformation. Finalized by Delon Arizmendi MD on 02/02/2024 9:30 PM Normal [facility] Glucose Glucometer (BldC) [M ass/Vol]on 02-02-2024 Glucose [Mass/Vol] 234 mg/dL High 65-99 [facility] Glucose [Mass/Vol] 253 mg/dL High 65-99 [facility] Heparin unfractionated Chrom ogenic method Qn (PPP)on 02-02-2024 ANTI XA UFH 0.07 IU/mL Low 0.30-0.70 [facility] Comment on above: Result Comment: Opti mal time for testing is 6 hrs post dosage This test is specific for monitoring patients on UFH, and is not recommended for use with other Anti-Xa medications. Performed By: #### C TYSHAWN, CMP #### [facility] ([id number]) [address], [address] [place] [address] MR BRAIN WO CONTon 4 MR BRAIN WO CONT MR BRAIN WO CONT MR BRAIN WO CONT CLINICAL INFORMATION: Focal neurological deficit, stroke, headache, dizziness COMPARISON: None PROCEDURE: Routine MRI Brain was obtained without intravenous contrast. Multisequence, multiplanar imaging was obtained. FINDINGS: Focal area of acute ischemia within the medial left cerebellar hemisphere. Additional focal areas of acute ischemia within the medial left temporal (specifically including the body/tail of the left hippocampus), portions of the anterior left occipital lobe, and posterior left basal ganglia. Susceptibility artifact within the body/tail of the hippocampus and left basal ganglia infarct suggest interval hemorrhagic transformation. No significant edema or mass effect. No midline shift or herniation. Abnormal appearance of the left V4 vertebral artery flow void which has increased internal signal concerning for thrombus or slow flow. This has be focal areas of FLAIR signal corresponding to regions of ischemia, there is no significant white matter FLAIR burden within the brain parenchyma. Extra-axial spaces are unremarkable appearing. Paranasal sinuses and mastoid air cells are clear. Orbits and infratemporal soft tissues are unremarkable. Brainstem is unremarkable appearing. Partial empty sella configuration. IMPRESSION: * Multifocal areas of acute ischemia involving multiple vascular territories in the left supratentorial/infrate ntorial brain as detailed above. Correlate for underlying thromboembolic process. * Abnormal flow void of the left V4 vertebral artery concerning for thrombus or slow flow. Consider CTA head/neck for further characterization if indicated. * Regions of acute ischemia in the left basal ganglia and body/tail of the left hippocampus demonstrates subtle hemorrhagic transformation without midline shift, mass effect, or herniation. Approved by Resident Ryan Cervantes DO on 02/02/2024 7:37 PM Delon Candelario MD have personally reviewed the image(s) and agree with and/or edited the report Finalized by Delon Arizmendi MD on 02/02/2024 8:36 PM Normal [facility] PROTIME AND INRon 02-02-2024 INR Coag (PPP) [Relative time] 1.0 {INR} Normal 0.8-1.1 [facility] Comment on above: Performed By: #### P INR, 47787-5 #### [facility] ([id number]) [address], [address] [place] [address] PT Coag (PPP) [Time] 11.7 s Normal 9.8-13.2 [facility] Comment on above: Performed By: #### P INR, 18225-8 #### [facility] ([id number]) [address] [place] [address] aPTT Coag (PPP) [Time]on aPTT Coag (Bld) [Time] 31 s Normal 26-37 [facility] Comment on above: Performed By: #### P INR, 23232-1 #### [facility] ([id number]) [address], [address] [place] [address] COVID-19 PCRon 10-31-2019 SARS-CoV-2, PHOEBE Not Detected Normal Not Detected [facility] Comment on above: Result Comment: This test was developed and its performance characteristics determined by [employer]. This test has not been FDA cleared [...] assay. Performed By: #### C VDPCR #### [facility] [address] [address] Dottie Shields Encounters Encounter Date Encounter Type Care Provider Facility Start: 02-10-2024 End: 02-10-2024 Anticoagulant drug monitoring Qi Castroto [facility] Work Phone: [facility] Comment on above: Vertebral artery dis section (CMS-HCC) (Primary Dx) Start: 02-10-2024 End: 02-11-2024 Telephone encounter Qi Milleronato [facility] Work Phone: [facility] Start: 02-06-2024 End: 02-06-2024 ambulatory [facility] Start: 02-03-2024 ambulatory [facility] Start: 02-02-2024 End: 02-08-2024 Evaluation and management of inpatient SHIV GARCIAS [facility] Start: 10-29-2019 End: 10-30-2019 Patient encounter procedure [facility] Facility:H1 Procedures Date Procedure Procedure Detail Performing Clinician Start: 02-02-2024 Adult depression scr eening assessment Qi [facility] Work Phone: Start: 10-25-2022 Microscopic observat ion [Identifier] in Cervix by Cyto stain Qi Tatum [facility] Work Phone: Plan of Treatment Date Care Activity Detail Author Start: 10-25-2025 Screening for malignant neoplasm of cervix Pap Smear [facility] Start: 02-06-2025 Adult BMI Screening Adult BMI Screening [facility] Start: 02-01-2025 Depression Screening Depression Screening [facility] Start: 02-01-2025 Tobacco Screening Tobacco Screening [facility] Start: 12-01-2023 Influenza vaccination Influenza Vaccine [facility] Start: 2023 Administration of varicella zoster vaccine Zoster (Shingles) Vaccine (1 of 2) [facility] Start: 1992 DTaP,Tdap and Td Vaccines (1 - Tdap) DTaP,Tdap and Td Vaccines (1 - Tdap) [facility] Start: 1991 Adult BMI Follow Up Plan Adult BMI Follow Up Plan [facility] Start: 1973 Tobacco Counseling Tobacco Counseling [facility] Immunizations Immunization Date Immunization Notes Care Provider Fa enma 02-16-2023 influenza, injectabl e, quadrivalent, preservative free Qi Deepti [facility] Work Phone: [facility] 02-16-2023 Pneumococcal Conjuga te 20-valent Qi Deepti [facility] Work Phone: [facility] 02-16-2023 influenza virus vacc ine, unspecified formulation Qi Deepti RP Work Phone: [facility] 11-04-2016 influenza, seasonal, injectable, preservative free Qi Deepti RP Work Phone: [facility] 10-24-2011 pneumococcal polysaccharide vaccine, 23 valent Qi Deepti RP Work Phone: [facility] Payers Date Payer Category Payer Managed Care Other (unspecified) COMMERCIAL [id number] 2023 Unknown [id number] 2020 [facility] ALLIED BENEFIT (RB-SELFPAY) [id number] 1973 Unknown [id number] 1973 Unknown [id number] 2.1286 1973 Unknown [id number] 2.1286 1973 Unknown [id number] 2.1286 1973 Unknown [id number]. 2.1286 1973 Unknown [id number] 2.1286 1959 Unknown [id number] Social History Date Type Detail Facility Start: 04-01-1990 [facility] Start: 04-01-1990 History of tobacco use Cigarette Smo ker [facility] Start: 05-09-2020 End: 02-02-2024 Cigarettes smoked current (pack per day) - Reported 1 [facility] Start: 02-02-2024 Tobacco use and exposure Smokeless tobacco non-user [facility] Start: 02-04-2024 Alcoholic beverage intake Ex-drinker (finding) [facility] Start: 05-09-2020 End: 02-02-2024 [facility] [place] Utilities [facility] Has the [employer], or [employer] threatened to shut off services in your home in past 12Mo No [facility] How often to you hav e a drink containing alcohol? Never [facility] How many standard drinks containing alcohol do you have on a typical day? [facility] not drink [facility] Start: 1975 Sex assigned at Not on file [facility] Start: 11-03-2014 Sex Female (finding) [facility] Goals Date Patient Goal Desired Activity /State Personal health goal Comment on above: Formatting of this n ote might be different from the original. Evaluation of progress towards goal: Patient agrees to going to Inpatient acute rehab at discharge, reviewing IPR list and discussing choices with family. Note 02-10-2024 Telephone Encounter - Qi Tatum RPH - 02/10/2024 10:03 AM ESTTelephone Encounter - Gwendolyn Andrews RN - 02/10/2024 10:03 AM ESTTelephone Encounter - Qi Tatum RPH - 02/10/2024 10:03 AM EST Note Date & Type Note Facility 02-10-2024 Miscellaneous Notes Formattin g of this note might be different from the original. [facility] received a referral for warfarin management from resident physician Dr. Mary Ho upon discharge from recent admission for vertebral artery occlusion with concern for possible left vertebral artery thrombus. Requesting updated referral from neurology attending as [facility] cannot accept referrals from residents. Referral has been pended in [facility] for cosignature. Referral updated. Updated referral received. Awaiting Dr. Bradley's cosignature. Thank you! documented in this encounter [facility] Telephone encounter Note 02-10-2024 Telephone Encounter - Qi Tatum RPH - 02/10/2024 10:03 AM EST Note Date & Type Note Facility 02-10-2024 Telephone encount er Note [facility]lin MAURICE received a referral for warfarin management from resident physician Dr. Mary Ho upon discharge from recent admission for vertebral artery occlusion with concern for possible left vertebral artery thrombus. Requesting updated referral from neurolog[facility] attending [facility] referrals from residents. Referral has been pended in [facility] for cosignature. [employer] [facility] Telephone encounter Note 02-10-2024 Telephone Encounter - Gwendolyn Andrews RN - 02/10/2024 10:03 AM EST Note Date & Type Note Facility 02-10-2024 Telephone encount er Note Referral updated. [employer] [facility] [facility] Telephone encounter Note 02-10-2024 Telephone Encounter - Qi Tatum RP - 02/10/2024 10:03 AM EST Note Date & Type Note Facility 02-10-2024 Telephone encount er Note Updated referral received. Awaiting Dr. Bradley's cosignature. Thank you! videoNEXT History of Present illness Narrative 02-10-2024 Qi Tatum RPH - 02/10/2024 8:52 AM EST Note Date & Type Note Facility 02-10-2024 History of Present illness Narrative [facility] received a new referral from Dr. Mary Ho on 02/08/2024 at 9:49 am. The information below is outlined from the referral: Demographics Dianne Crowell 1975 [facility]: [facility] Anticoagulation Details Indication: Vertebral artery dissection INR Target Range: 2.0 - 3.0 Bridging Preference for procedure/surgery: No bridging is necessary - pt was bridged with IV heparin prior to d/c Date warfarin started: 02/04/24 Date of next INR required: TBD Anticipated duration of therapy: 04/18/24 Warfarin tablet strength prescribed: 2.5 mg Current dosing instructions: 5-7.5 mg daily - Referral notes: Patient given 2 doses of 5 mg, INR remained 1.1, patient then given 2 doses of 7.5 INR therapeutic to 2.1. Discharging on 5 mg daily with instruction to follow-up with the [facility] anticoagulation clinic for further management of warfarin. Given a 2.5 mg prescription The dosing calendar is up-to-date to reflect warfarin tablet strength prescribed and current dosing instructions. The patient education checklist will be discussed in depth during the initial [id number] visit with a [facility] clinical pharmacist and/or during the initial phone call during home health. Pertinent information: Patient is a 48 yof with PMH uncontrolled Type 2 DM, HTN, HLD, and chronic smoking x 30 yrs. She was admitted 02/02/24-02/08/24 for vertebral artery occlusion with concern for possible left vertebral artery thrombus. MRI brain was significant for multifocal areas of stroke in the left cerebellar hemisphere, left thalamic and left lateral geniculate body and left temporal lobe. She was started on warfarin and INR was 2.1 at the time of discharge. She discharged on warfarin 5 mg daily and did not receive a dose prior to d/c on 02/07. She discharged to [facility]. Of note, referral is from a resident physician. Will request an updated referral from neurology. Letter faxed to [facility] (F: [phone]) requesting to be notified when patient discharges with warfarin dosing and INRs faxed to [facility] MAURICE. Anticoagulation episode resolved. Qi Tatum RPH 02/10/24 0912 documented in this encounter [facility] Evaluation note Note Date & Type Note Facility Evaluation note Diagnosis Vertebral artery dissection (CMS-HCC)- Primary Dissection of vertebral artery documented in this encounter [facility] Evaluation note Note Date & Type Note Facility Evaluation note Diagnosis Vertebral artery dissection (CMS-HCC)- Primary Dissection of vertebral artery documented in this encounter [facility] Instructions Note Date & Type Note Facility Instructions Not on filedocumented in this en counter [facility] Instructions Note Date & Type Note Facility Instructions Not on filedocumented in this en counter [facility] Summary Purpose Family History No Family History Records FoundNo Family History Records FoundNo Family History Records Found Advance Directives Date Activated Date Inactivated Comments 02/02/2024 7:56 PM 02/08/2024 2:04 PM Date Activated Date Inactivated Comments 02/02/2024 7:56 PM 02/08/2024 2:04 PM Additional Source Comments INFORMATION SOURCE (unrecogn ized section and content) DATE CREATED AUTHOR 01/01/2020 [facility] DATE CREATED AUTHOR AUTHOR'S ORGANIZ ATION 02/08/2024 [facility] DATE CREATED AUTHOR AUTHOR'S ORGANIZ ATION 02/10/2024 [facility] Care Teams (unrecognized sec tion and content) 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 [facility] [employer] [facility]. provides no warranty or guarantee of the accuracy or completeness of information in this document.
[2024-02-14 18:14] LABS: INR 1.08; Prothrombin Time 11.4 sec (9.0-11.6)
== END 2024-02-14 16:54 | disposition home or self-care (01) ==
LOC: LAB 16:53
PROVIDERS: Visit Provider Internal Medicine
DX: I87.2 Venous insufficiency (chronic) (peripheral) (principal)
CPT/HCPCS: 36415; 85610